=== PATIENT | female | born 1945 | race Caucasian/White ===

== ENCOUNTER 2020-09-16 08:46 | Day surgery (SDC) | payer MEDICARE, OTHER ==
[~2020-09-16] VITALS: Ht 167.6 cm; Wt 68.2 kg
[~2020-09-16 08:46] MED LIST: ATORVASTATIN CA40 MG PO; BAYER CHEWABLE81 MG PO; BENICAR20 MG PO; CHLORHEXIDINE473 ML MM; CHOLESTYRAMINE P4 GM PO; CLARITIN10 M2 PO; DETROL LA4 MG PO; DEXAMETHAS0.5 MG/5 M PO; DULOXETINE HCL60 MG PO; HYDROCODON-ACE1 EA10 PO; LASIX20 MG PO; PEPCID20 MG PO; RISPERIDONE1 MG PO; TOPROL XL25 MG PO; VESICARE10 MG PO; VISTARIL50 MG PO
--- NOTE | 2020-09-16 12:31 | NUR ---
09/16/20 1231 Shari Navarro 1223: PT ARRIVES TO PACU VIA STRETCHER FOR RECOVERY. NON REACTIVE TO TACTILE AND VERBAL STIMULATION ON ARRIVAL. VSS, RESP EVEN AND UNLABORED. O2 SAT STABLE >985 ON 6L VIA FACEMASK. DRESSING C/D/I X4. SCDS TURNED ON. 1228: PT REACTIVE TO TACTILE STIMULATION. REMAINS ON 6L OXYGEN VIA FACEMASK 1230: ANTHONY HUGGER IN PLACE. PT AWAKE OFF AND ON. VSS, RESP EVEN AND UNLABORED. SAT STABLE ON 6L O2 >98%
--- NOTE | 2020-09-16 13:15 | NUR ---
PT ARRIVED TO FLOOR VIA STRETCHER FROM PACU. PT ABLE TO SCOOT OVER FROM STRETCHER TO BED. PT ALERT AND ORIENTED, PT REPORTS NO PAIN OR NAUSEA AT THIS TIME. PT HAS 2 INCISIONS AND 3 SITES FOR JPS NOTED. LEFT INCISION HAS SLIGHT DOTTED SHADOWING NOTED UPON ARRIVAL
--- NOTE | 2020-09-16 13:49 | NUR ---
PATIENTS IV IS INFUSING PER ORDER. PATIENTS MEDICAITONS GIVEN POER ORDER. PATIENT DENIES ANY PAIN OR NAUSEA. PATIENT IS RESTING IN BED SIPING ICE WATER. PATIENT GIVEN JELLO PER REQUEST. PATIENT REMAINS ON RA. NO NEEDS NOTED AT THIS TIME. CALL LIGHT AND BELONGINGS WITHIN REACH.
--- NOTE | 2020-09-16 14:15 | NUR ---
THIS RN IN TO CHECK ON PT. PT STATES THAT SHE NEEDS NOTHING AT THIS TIME AND HAS NO PAIN, PT REPORTS SLIGHT BURING AT SITE BUT HAS NO REAL CONCERN ABOUT THIS.
--- NOTE | 2020-09-16 15:15 | NUR ---
THIS RN IN PTS ROOM TO CHECK ON PT. PT STATES THAT SHE IS DOING WELL AND THAT THE BURING AT THE SURGICAL SITE IS GONE AND STATES TAHT SHE IS SURPRISED ON HOW WELL SHE IS DOING.
--- NOTE | 2020-09-16 16:15 | NUR ---
THIS RN ASSISTED PT TO THE RESTROOM AT THIS TIME. PT STEADY ON FEET AND ABLE TO VOID QUANITY SUFFIENT AT THIS TIME. PT HAS NO CONERNS AT THIS TIME AND STATES THAT SHE HAS NO PAIN BUT DOES HAVE A SCRATCHING THROAT, THIS RN PROVIDED PT WITH A 7UP.
--- NOTE | 2020-09-16 18:20 | NUR ---
THIS RN IN PTS ROOM TO EDUCATE PT ABOUT HOW TO DRAIN A SAÚL. PT SHOWED HOW TO DO IT WITH THE FIRST TWO DRAINS AND THEN ABLE TO DO IT WITH THE THIRD DRAIN. PT ASKED PERTINANT QUESTIONS AND WAS ABLE TO PREFORM TASK WELL
--- NOTE | 2020-09-16 19:10 | NUR ---
IN ROOM FOR REPORT, PT IS RESTING WITH EYES CLOSED, RR IS EVEN AND NONLABORED. CALL LIGHT IS CLOSE. IV IS INFUSING FINE.
--- NOTE | 2020-09-16 20:18 | NUR ---
IN TO GET VITALS, I@Os ARE DONE, PT UP TO VOID SBA TO INDP AT THIS TIME, NO FURTHER NEEDS
--- NOTE | 2020-09-16 22:29 | NUR ---
IN ROOM TO ASSESS PT AND ADMINISTER EVENING MEDICATIONS. TAUGHT DRAIN CARE AND PT EMPTIED ALL 3 DRAINS. SHE DENIES ANY PAIN AT THIS TIME. THERE IS SOME DRAINAGE NOTED ON DRAIN #2 GAUZE. PINNED BOTH DRAINS TO GOWN TO AVOID PULLING ON THEM. PT DENIES FURTHER NEEDS AT THIS TIME. CALL LIGHT IS CLOSE.
--- NOTE | 2020-09-17 00:36 | NUR ---
PT IS RESTING WITH EYES CLOSED, RR IS EVEN AND NONLABORED. CALL LIGHT IS CLOSE AND IV IS INFUSING FINE.
--- NOTE | 2020-09-17 02:06 | NUR ---
PT IS RESTING WITH EYES CLOSED, RR IS EVEN AND NONLABORED. CALL LIGHT IS CLOASE AND IV IS INFUSING FINE.
--- NOTE | 2020-09-17 02:34 | NUR ---
IN ROOM TO ASSESS PT AND HANG NEW BAG OF IV FLUID. PT DENIES PAIN AT THIS TIME. ALL DRESSINGS AND SOHAIL DRAINS REMAIN INTACT. BOTH ACTICOATS HAVE 1 SMALL SPOT OF DRAINAGE ON DRESSING. DRAIN 1 AND 3 HAVE A SCANT AMOUNT OF DRAINAGE JUST AROUND TUBING AND DRAIN 2 HAS A MODERATE AMOUNT OF DRAINAGE ON GAUZE UNDER DRAIN TUBE. PT DENIES ANY NEEDS AT THIS TIME. CALL LIGHT IS CLOSE.
--- NOTE | 2020-09-17 03:58 | NUR ---
PT IS RESTING WITHE EYES CLOSED, RR IS EVEN AND NONLABORED. CALL LIGHT IS CLOSE AND IV IS INFUSING FINE.
--- NOTE | 2020-09-17 06:21 | NUR ---
IN ROOM TO ASSIST PT TO RESTROOM AND GET VS/ I&O'S. PT EMPTIED HER OWN DRAINS WITH MINIMAL ASSISTANCE. SHE HAS NO PAIN AND DENIES FURTHER NEEDS. CALL LIGHT IS CLOSE. IV IS INFUSING FINE.
--- NOTE | 2020-09-17 06:31 | NUR ---
PT STATES THAT SHE SLEPT WELL THROUGH THE NIGHT. SHE AMBULATES SBA AND IV IS INFUSING AT 85MLS/HR. SHE IS TOLERATING A REGULAR DIET. TAUGHT DRAIN CARE AND PT HAS BEEN EMPTYING HER DRAINS WITH LITTLE ASSISTANCE. SHE IS VOIDING QS URINE AND DENIES PAIN AND NAUSEA.
--- NOTE | 2020-09-17 07:27 | NUR ---
this rn received report from homer nj. pt awake this am and states that she is doing well this am with no pain noted from surgery and states that she is feeling more comfortable with emptying her drains
--- NOTE | 2020-09-17 08:06 | NUR ---
PATIENT AWAKE. HELPED PATIENT INTO CHAIR. AM CARE DONE AND BED MADE. CALL LIGHT IN REACH BREAKFAST ORDERED. NOTHING ELSE NEEDED AT THIS TIME
[2020-09-17] MEDS ORDERED: ACETAMINOPHEN500 MG PO (08:44)
[2020-09-17] MEDS ORDERED: IBUPROFEN600 MG PO (08:44)
[2020-09-17] MEDS ORDERED: OXYCODON-ACETA1 EAC2 PO (08:44)
--- NOTE | 2020-09-17 09:13 | NUR ---
THIS RN IN PTS ROOM TO GIVE PT HER MORING MEDS. PT SITTING UP IN CHAIR AND BELEM FROM BREAST TEAM IN PTS ROOM SHOWING HER HOW TO WEAR THE CAMMISOL. PT STATES THAT SHE STILL NOT HAVING ANY PAIN AND REPORTS NO CONCERNS FOR GOING HOME.
--- NOTE | 2020-09-17 09:40 | NUR ---
THIS RN INTO ROOM, PATIENT SITTING UP IN CHAIR. PATIENT STATES SHE IS BEING DISCHARGED HOME THIS MORNING. CASE MANAGEMENT ASSESSMENT COMPLETED. PATIENT LIVE AT HOME WITH HER NATALIA WHO IS ABLE TO HELP WITH HER CARE. LELA IBRAHIM RN PATIENT AND HER HAVE SUCCESSFULLY EMPTYING THE SAÚL DRAINS. PATIENT STATES SHE DOES OWN A WALKER, BUT DOES NOT USE IT. SHE STATES SHE HAS NO MOBILITY NEEDS AT THIS TIME. PATIENT DENIES FINANCIAL NEEDS. PATIENT ADVISED THAT IF THERE ARE ANY QUESTIONS OR CONCERNS REGARDING DISCHARGE TO CONTACT CASE MANAGEMENT STAFF.
--- NOTE | 2020-09-17 10:55 | NUR ---
PATIENTS LAST SET OF VITALS TAKEN AND RECORDED. PATIENT DENIES ANY PAIN. NO NEEDS NOTED. [employer] IS TO WHEELCHAIR PATIENT OUT TO IN THEIR PRIVATE POV. ALL BELONGINGS WITH PATIENT AND DISCHARGE INSTRUCTIONS.
--- NOTE | 2020-09-20 10:51 | OR ---
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 POSTOPERATIVE DIAGNOSES: 1. Right infiltrating ductal carcinoma of the breast. 2. [place] lymph node right side negative for metastatic disease on frozen pathology. 3. Moderately large pigmented lesion left posterior axillary area of uncertain behavior. PROCEDURES: 1. Left total (prophylactic) mastectomy. 2. Right methylene blue sentinel lymph node injection. 3. Right deep axillary sentinel lymph node biopsy. 4. Right total mastectomy. 5. Excision of left posterior axillary scalloped edge large pigmented skin lesion (4.0 cm excision size). ANESTHESIA: General LMA, Ruben Davison CRNA and . DRAINS: 1. Left chest wall 7 mm flat Josué drain. 2. Right chest wall and right axillary 7 mm Josué drain. INDICATION: This 74-year-old white woman is a patient of Dr. Steve Sepulveda, was identified to have an abnormality of the right breast in the periareolar area. Biopsy by image guidance by Dr. Garcia confirmed infiltrating ductal breast carcinoma. The patient has family history of breast cancer in mother and grandmother. Preoperative BRCA testing was obtained by Dr. Modi, radiation therapist which was negative. Initially, the patient was anticipating right lumpectomy, sentinel lymph node biopsy and radiation therapy, but the patient became more convinced that she preferred a total mastectomy on the right as well as prophylactic mastectomy on the left. A lengthy consultation was undertaken with radiation therapist, Dr. Modi and despite both of our recommendation of a breast conservation approach, she strongly wishes to Electronically Signed By: YONNY BECERRA MD 09/20/20 1051 PATIENT NAME: STACIE MUNOZ OPERATIVE REPORT DATE OF : 47 REPORT #: [id number] PHYSICIAN: YONNY BECERRA MD PCP: STEVE SEPULVEDA MD REPORT IS CONFIDENTIAL AND NOT TO BE RELEASED WITHOUT AUTHORIZATION [facility] [address], [place] [address] Signed have right total mastectomy with sentinel lymph node biopsy as well as left prophylactic mastectomy. She does understand that the survival rate is equivalent to both approaches and yet still feels compelled to have bilateral mastectomy. She understands, as does her , the physician and psychiatrist, the risks of bleeding, infection, cosmetic deformity, and so forth. The patient has no intention of breast reconstruction at least at this point. FINDINGS: The left breast had normal parenchyma. Axilla was clinically negative. Left total mastectomy was undertaken without problem. On the right side, there is no palpable abnormality to correspond to the previous biopsy site. Good uptake of methylene blue dye was noted in the dominant right axillary sentinel lymph node. Pathology report during operation showed on frozen examination that the right sentinel lymph node was negative for metastatic disease. A total mastectomy on the right was accomplished without problem. There is no evidence of tumor penetration through the pectoralis fascia and the tumor itself was not identified at this point. DESCRIPTION OF PROCEDURE: The patient was brought to the operating room, given a general anesthetic by LMA technique. Preoperative antibiotic Ancef was given. Sequential compression device stockings were used and heparin subcutaneously administered. Injection in the 10 o'clock position of the right periareolar area with 2.5 mL of methylene blue dye was undertaken mostly in the subepithelial position. Both breasts and axilla were prepared with a Betadine based solution and draped sterilely. As the benign breast was on the left side, it was deemed appropriate to excise 1st. incision was made in the nipple-areolar complex and the dermis divided with electrocautery. Superior and inferior flaps were developed with electrocautery dissection. The breast was excised in a medial to lateral configuration excising the breast tissue with the pectoralis fascia. Small bleeding sites through the pectoralis muscle were secured with electrocautery. A dominant one secured with a silk tie. The axillary tail of Gabriele was excised and revealed the underlying axilla. The axilla had no clinically suspicious lymph nodes and elaborate dissection of the axilla was not undertaken. Irrigation was undertaken with sterile water for its tumor lytic effect. Hemostasis was assured with electrocautery. A stab incision was made inferiorly and a 7 mm flat Josué drain configured to drain the subflap area. Tisseel with carbon dioxide delivery device was used to coat the pectoralis and the flap areas. Flap skin was reapproximated with interrupted 2-0 Vicryl and a running subcuticular 3-0 Vicryl for the skin. Steri-Strips were applied as was an Acticoat dressing. Electronically Signed By: YONNY BECERRA MD 09/20/20 1051 PATIENT NAME: STACIE MUNOZ OPERATIVE REPORT DATE OF : 47 REPORT #: [id number] PHYSICIAN: YONNY BECERRA MD PCP: STEVE SEPULVEDA MD REPORT IS CONFIDENTIAL AND NOT TO BE RELEASED WITHOUT AUTHORIZATION [address] [address] Signed Not mentioned nor noted previously by me was a scalloped relatively larger deeply pigmented skin lesion in the posterior axillary fold. This was deemed appropriate for excision on the possibility of malignant neoplasm. Elliptical incision was made incorporating the lesion entirely with clinically negative margin in the past as skin lesion, left posterior axillary fold. Electrocautery was used for hemostasis. The wound was closed in layers with interrupted 3-0 Vicryl and running subcuticular 3-0 Vicryl for the skin. Steri-Strips were applied as was an Op-Site. Plans were then made for right-sided surgery. An elliptical incision was made incorporating the nipple areolar complex and superior and inferior skin flaps developed again with electrocautery. In the area of the axilla, further dissection was undertaken and methylene blue lymphatic channel was easily identified and followed into the depths of the axilla. This allowed identification of a 1.5 cm lymph node with avid uptake of blue dye. There were no other lymph nodes noted with uptake of dye at that point. The node was carefully from the axillary fat and excised and passed for frozen pathology. The breast was then dissected free in a medial to lateral configuration using electrocautery to secure penetrating vessels. Once excised, the axillary tail of Gabriele was marked with a suture finding the axillary tail. There was no evidence of penetration of tumor through the pectoralis fascia or anything of that sort. The lesion itself was nonpalpable. Irrigation with sterile water was undertaken in the axilla and the subflap areas. Hemostasis assured with electrocautery. By this point, frozen pathology returned on the axillary lymph node, which was negative for metastatic disease. Two separate 7 mm flat Josué drains were placed on the right side, one to include the axilla and the other beneath the flaps. They were secured to the skin with 2-0 nylon suture. The flaps were reapproximated with interrupted 2-0 Vicryl and a running subcuticular 3-0 Vicryl was used for the skin. Steri-Strips were applied as was an Acticoat dressing. The patient was ultimately extubated and transferred to the recovery room in good condition having suffered no complication. Sponge, needle, and instrument counts were reported as correct x3. Blood loss was about 100 mL. MD DONNA Phillips/LAMONTL /[id number] cc: Steve Sepulveda MD Electronically Signed By: YONNY BECERRA MD 09/20/20 105 PATIENT NAME: STACIE MUNOZ OPERATIVE REPORT DATE OF : 47 REPORT #: [id number] PHYSICIAN: YONNY BECERRA MD PCP: STEVE SEPULVEDA MD REPORT IS CONFIDENTIAL AND NOT TO BE RELEASED WITHOUT AUTHORIZATION [address] [address] Signed Fabien Modi MD, PH.D. Josh Stuart MD Copies: STEVE SEPULVEDA MD, JUNO ~ Electronically Signed By: YONNY BECERRA MD 09/20/20 1051 PATIENT NAME: ELOINA MUNOZЕЛЕНА RIDDLE OPERATIVE REPORT DATE OF : 47 REPORT #: [id number] PHYSICIAN: YONNY BECERRA MD PCP: STEVE SEPULVEDA MD REPORT IS CONFIDENTIAL AND NOT TO BE RELEASED WITHOUT AUTHORIZATION
--- NOTE | 2020-09-23 12:53 | PATH ---
[facility] [address], [place] [address] Signed SPECIMEN(S): A LEFT BREAST SPECIMEN(S): B LEFT POSTERIOR AXILLA SPECIMEN(S): C RIGHT AXILLARY SENTINEL LYMPH NODE SPECIMEN(S): D RIGHT BREAST AND TUMOR SPECIMEN SOURCE: A. LEFT BREAST B. LEFT POSTERIOR AXILLA C. RIGHT AXILLARY SENTINEL LYMPH NODE D. RIGHT BREAST AND TUMOR CLINICAL HISTORY: Bilateral total mastectomy, SLN biopsy with possible axillary dissection. Family history of breast CA. 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 B) Left posterior axillary skin lesion. C) Right axillary sentinel lymph node. D) Right breast with tumor (suture lofton axillary tail). Specimen Time to Fixation- 09/16/2020 11:05:00 AM FROZEN SECTION DIAGNOSIS: C. Right axillary sentinel lymph node #1: - No evidence of malignancy in underwriting account representative section frozen. Tiffanie Eagle M.D. 09/16/2020 11:49 a.m. Frozen section diagnoses called to Dr. Monzon. NAL:cml The Gross Description was prepared using a voice recognition system. The report was reviewed for accuracy; however, sound-alike word errors, addition and/or deletions may occur. If there is any question about this report, please contact Client Services. FINAL PATHOLOGIC DIAGNOSIS: A. Breast, left, simple mastectomy: - Benign breast tissue wit fibrocystic changes including usual ductal hyperplasia, cyst formation, and stromal fibrosis. - Microcalcifications associated with benign breast tissue. - Negative for malignancy. B. Skin lesion, left posterior axilla, excision: - Seborrheic keratosis, pigmented. C. Brielle lymph node, right axilla, excisional biopsy: - One lymph node with no evidence of malignancy (0/1). D. Breast, right simple mastectomy : PATIENT NAME: STACIE MUNOZ PATHOLOGY DATE OF : 47 REPORT #: [id number] PHYSICIAN: FIFI PATHOLOGY PCP: KERMIT DERAS MD REPORT IS CONFIDENTIAL AND NOT TO BE RELEASED WITHOUT AUTHORIZATION [facility] [address] [place], [place] [address] Signed - Invasive ductal carcinoma with the following features: - Tumor site: 2 o'clock. - Tumor size: 10 mm in greatest dimension. - Histologic type: Invasive carcinoma of no special type (ductal). - Histologic grade (Neeraj histologic score): - Glandular (acinar)/tubular differentiation: Score 3. - Nuclear pleomorphism: Score 2. - Mitotic rate: Score 1. - Overall grade: Grade 2 (total score 6 of 9). - Tumor focality: Single focus of invasive carcinoma. - Ductal carcinoma in situ (DCIS): Present, negative for extensive intraductal component (EIC). - Architectural patterns: Solid, cribriform, and comedo. - Nuclear grade: Grade 2 (intermediate). - Necrosis: Present, central (expansive "comedo" necrosis). - Lobular carcinoma in situ (LCIS): Not identified. - Margins: - Invasive carcinoma margins: Uninvolved by invasive carcinoma. - Greater than 10 mm from superior, inferior, medial, lateral, and posterior margins. - DCIS margins: Uninvolved by DCIS. - Greater than 10 mm from superior, inferior, medial, lateral, and posterior margins. - Regional lymph nodes: Uninvolved by tumor cells. - Number of lymph nodes examined: 2 (including specimen C). - Number of sentinel nodes examined: 1. - Treatment effect in the breast: No known pre-surgical therapy. - Lymphovascular invasion: Not identified. - Dermal lymphovascular invasion: Not identified. - Breast biomarker studies: Please refer to previously performed testing ([id number]), interpreted as ER positive, W[place] positive, HER2 negative by IHC, and Ki-67 proliferation index 4.6%. - Microcalcifications: Present in non-neoplastic tissue. - Additional findings: Biopsy site change. - Pathologic stage classification (pTNM, AJCC 8th edition): pT1b (sn) pN0. PATIENT NAME: STACIE MUNOZ PATHOLOGY DATE OF : 47 REPORT #: [id number] PHYSICIAN: FIFI PATHOLOGY PCP: KERMIT DERAS MD REPORT IS CONFIDENTIAL AND NOT TO BE RELEASED WITHOUT AUTHORIZATION [facility] [address] [place] [id number] Signed COMMENT: As part of [employer] [employer]' Quality Improvement Program, this case was reviewed by another member of our pathology staff. One additional benign lymph node was found in the right breast axillary tail, making the total lymph node count two. NAL:BRP:cml:C1NR MICROSCOPIC EXAMINATION: Histologic sections of all submitted blocks are examined by light microscopy. These findings, together with the gross examination, support the pathologic diagnosis. Pancytokeratin (AE1/AE3) immunohistochemical stains were performed on each section of the right axillary sentinel lymph node and confirm the absence of metastatic tumor cells. SMMHC and p63 immunohistochemical stains (with appropriately staining controls were performed on a underwriting account representative section of the carcinoma and confirms the absence of myoepithelial cell surrounding the invasive carcinoma. GROSS DESCRIPTION: Four specimens are received in four containers, labeled "JJ." A. The specimen, labeled "JJ, A.," and designated on the requisition "left breast," is received in formalin and consists of a 480 gram, 16.2 x 13.0 x 4.7 cm simple mastectomy specimen that is without orientation. On the anterior surface of the specimen is a ye, grossly unremarkable, 15.2 x 5.1 cm skin ellipse. Centrally located on the skin ellipse is a 5.5 x 4.1 cm, ye, grossly unremarkable areola and a flat, 1.5 x 1.3 x 0.2 cm, grossly unremarkable nipple. One aspect of the specimen has slightly more adipose tissue. This aspect is arbitrarily inked blue while the opposing aspect is inked green. The posterior surface of the specimen is inked black. The specimen is cross-sectioned into 14 slices to reveal yellow, fibrofatty and ye-white fibroglandular tissue. A discrete mass lesion is not grossly identified. Fibroglandular tissue comprises less than 5% of the parenchyma. The outer portions of the specimen are palpated for lymph nodes and no lymph nodes are grossly identified. [place] sections are submitted as follows: (A1-A2) First half of breast, blue inked aspect (slice 4 and 6 respectively) (A3-A4) First half of breast, green inked aspect (slice 3 and 7 respectively) (A5) Nipple and areolar complex (slice 6) PATIENT NAME: STACIE MUNOZ PATHOLOGY DATE OF : 47 REPORT #: [id number] PHYSICIAN: FIFI CARVALHO PCP: KERMIT DERAS MD REPORT IS CONFIDENTIAL AND NOT TO BE RELEASED WITHOUT AUTHORIZATION [facility] [address] [place], [place] [address] Signed (A6-A7) Second half of breast, blue inked aspect (slice 9 and 12 respectively) (A8-A9) Second half of breast, green inked aspect (slice 9 and 13 respectively) Cold ischemic time: 5 minutes per requisition from. Formalin fixation time: Approximately 25.5 hours. B. The specimen, labeled "JJ, B.," and designated on the requisition "left posterior axillary skin lesion," is received in formalin and consists of an unoriented, irregularly-shaped, ye, wrinkled, ellipsoid, 2.4 x 1.3 cm skin segment excised to a depth of 0.7 cm. On the skin surface is an ill-defined, somewhat porous, brown, 1.0 x 1.0 x 0.2 cm lesion that is 0.1 cm from the nearest peripheral skin margin. The resection margin is inked blue and specimen is cross-sectioned. The lesion does not grossly appear to invade into the subcutaneous tissue which is yellow, homogenous and grossly unremarkable. The specimen is submitted entirely as follows: (B1) Tips (B2-B3) Remaining specimen C. The specimen, labeled "JJ, C.," and designated on the requisition "right axillary sentinel lymph node," is received fresh for frozen section diagnosis and consists of a 0.7 x 0.5 x 0.4 cm lymph node candidate. The lymph node candidate is bisected and one half of the lymph node candidate is submitted for frozen section in AFR1. The specimen is submitted entirely as follows: (C1) Remainder of frozen section (C2) Remainder specimen D. The specimen, labeled "KYLAH D.," and designated on the requisition "right breast with tumor, suture lofton axillary tail," is received in formalin and consists of a 614 gram, 20.5 x 16.2 x 5.2 cm mastectomy specimen with diffusely attached tail. The specimen is oriented with a suture on the axillary tail. On the anterior surface of the specimen is a ye, grossly unremarkable, 19.2 x 8.1 cm skin ellipse with a centrally located, ye, wrinkled, 6.0 x 5.4 cm areola and a flattened, ye, 1.5 x 1.3 x 0.2 cm nipple. The skin has a 5.0 x 3.2 cm area of previous blue inking that abut the area and is 0.5 cm from the nearest resection margin. The specimen is inked as follows: Posterior = black; superior = blue; inferior = green; medial = orange; lateral = red; anterior = yellow; posterior = black. The specimen is sectioned from lateral to medial into 18 slices to reveal an ill-defined, heterogeneous, dark red, hemorrhagic to ye-white, PATIENT NAME: STACIE MUNOZ PATHOLOGY DATE OF : 47 REPORT #: [id number] PHYSICIAN: FIFI PATHOLOGY PCP: KERMIT DERAS MD REPORT IS CONFIDENTIAL AND NOT TO BE RELEASED WITHOUT AUTHORIZATION [address] [address] Signed indurated, 3.2 x 2.0 x 1.9 cm lesion (slices 14-16) that has a silver metallic, lorena-shaped biopsy marker (slice 16). The lesion is 1.1 cm from the skin, 1.4 cm from the nipple, 1.5 cm from the anterior margin, 1.9 cm from the area of previous blue inking on the skin surface, 3.5 cm from the medial margin, 3.8 cm from the nearest inferior margin, 5.2 cm from the deep margin, 5.2 cm from the superior margin, and 15.9 cm from the lateral margin. The remaining parenchyma is comprised of yellow fibrofatty and ye-white fibroglandular tissue without an additional discrete mass/lesion. Fibroglandular tissue comprises approximately 5% of the remaining parenchyma. The lateral portion of the specimen is sectioned and palpated for lymph nodes. One pink-ye, 0.8 cm in greatest dimension lymph node candidate is found within slice 1. [place] sections are submitted as follows: (D1) Lesion to skin and site of biopsy marker (slice 16) (D2) Lesion to skin (slice 15) (D3-D4) Lesion to nipple (slice 14 and 15 respectively (D5) Lesion to area of blue skin inking (slice 15; D2, D3 and D4 form a full cross-section of the lesion) (D6) Nearest medial margin to lesion (slice 16) (D7) Nearest inferior margin to lesion (slice 16) (D8) Nearest deep margin to lesion (slice 14) (D9) Central section fibroglandular tissue (slice 11) (D10) Nearest superior margin to lesion (slice 14) (D11) Upper outer quadrant (slice 8) (D12) Lower outer quadrant (slice) (D13) Section of the lateral margin (slice one) (D14) Lymph node candidate in toto Cold ischemic time: 2 minutes per requisition from. Formalin fixation time: Approximately 48.5 hours. AI (under the direct supervision of a pathologist) ADDITIONAL NOTES: Immunohistochemical and/or in situ hybridization studies were performed on this case with the appropriate positive controls that react as expected. This test was developed and its performance characteristics determined by [facility]. It has not been cleared or approved by the U.S. Food and Drug Administration. The FDA has determined that such clearance or approval is not PATIENT NAME: STACIE MUNOZ PATHOLOGY DATE OF : 47 REPORT #: [id number] PHYSICIAN: FIFI PATHOLOGY PCP: KERMIT DERAS MD REPORT IS CONFIDENTIAL AND NOT TO BE RELEASED WITHOUT AUTHORIZATION [facility] [address] [place] [phone] Signed necessary. This test is used for clinical purposes. It should not be regarded as investigational or for research. [facility] is certified under the Clinical Laboratory Improvement Amendments of 1988 (CLIA) as qualified to perform high complexity clinical laboratory testing. This assay has not been validated for specimens that have been decalcified. PERFORMING LABORATORY: [facility], [address] [place] [id number] (CLIA# [id number]). The technical component was performed by [facility] [address] (Process Engineering Technician: Nusrat León MD; CLIA# [id number]). [facility], [address] [place] [address] (CLIA# [id number]). Diagnostician: Tiffanie Eagle MD Pathologist Electronically Signed 09/23/2020 Copies: ~ PATIENT NAME: STACIE MUNOZ PATHOLOGY DATE OF : 47 REPORT #: [id number] PHYSICIAN: FIFI CARVALHO PCP: KERMIT DERAS MD REPORT IS CONFIDENTIAL AND NOT TO BE RELEASED WITHOUT AUTHORIZATION
== END 2020-09-17 10:55 | disposition home or self-care (01) ==
LOC: DS 08:46 → MS 08:46 → DS 09:45 → MS 13:20 → DS 09-17 10:55
PROVIDERS: ATTEND Surgery
PROC: 0HTV0ZZ Resection of Bilateral Breast, Open Approach (ICD-10-PCS; principal; 2020-09-16 09:45)
PROC: 07B50ZX Excision of Right Axillary Lymphatic, Open Approach, Diagnostic (ICD-10-PCS; 2020-09-16 09:45)
PROC: 0HB5XZZ Excision of Chest Skin, External Approach (ICD-10-PCS; 2020-09-16 09:45)
DX: C50.111 Malignant neoplasm of central portion of right female breast (principal); Z40.01 Encounter for prophylactic removal of breast; N60.02 Solitary cyst of left breast; N60.12 Diffuse cystic mastopathy of left breast; R92.0 Mammographic microcalcification found on diagnostic imaging of breast; L82.1 Other seborrheic keratosis; I10 Essential (primary) hypertension; K52.9 Noninfective gastroenteritis and colitis, unspecified; Z88.6 Allergy status to analgesic agent; Z88.8 Allergy status to other drugs, medicaments and biological substances; Z80.3 Family history of malignant neoplasm of breast
CPT/HCPCS: 00404; 36415; 85025; 88305; 88307; 88341; 88342; J0131; J0690; J1100; J1644; J1885; J2001; J2405; J2704; J3010; J7121; Q9968

== ENCOUNTER 2023-05-05 14:58 | Inpatient (IN) | payer OTHER, MEDICARE ==
[~2023-05-05] VITALS: Ht 167.6 cm; Wt 53.5 kg
[~2023-05-05 14:58] MED LIST changes: +ACETAMINOPHEN500 MG PO; -CLARITIN10 M2 PO; +CLARITIN10 MG PO; +IBUPROFEN600 MG PO; +OXYCODON-ACETA1 EAC2 PO
[2023-05-05 15:14] LABS: BASOPHILS 0.5 % (0-2); EOSINOPHILS 3.4 % (0-6); HEMATOCRIT 43.3 % (35.0-50.0); HEMOGLOBIN 14.4 g/dL (12.0-18.0); MCH 30.1 (27-36); MCHC 33.2 g/dl (30-36); MCV 90.8 fl (81-99); MONOCYTES 8.7 % (0-12); NEUTROPHILS 52.4 % (39-80); PLATELET COUNT 223 K/uL (140-440); RBC 4.77 M/ul (4.3-5.7); RDW 13.6 (10.5-15.0)
[2023-05-05 15:31] LABS: ALBUMIN 3.6 g/dL (3.4-5.0); ALBUMIN/GLOBULIN RATIO 0.92 (1.1-2.4); ALCOHOL, MEDICAL <3 ng/dL (<3); ALKALINE PHOSPHATASE 89 U/L (46-116); ALT (SGPT) 31 U/L (14-59); ANION GAP 11.7 (7-21); AST (SGOT) 18 U/L (15-37); BILIRUBIN, TOTAL 0.3 ng/dL (0.2-1.0); BUN/CREATININE RATIO 20.17 (6.0-28.6); CALCIUM 9.3 mg/dL (8.5-10.1); CARBON DIOXIDE 29 mmol/L (21-32); CHLORIDE 105 mmol/L (98-107); CREATININE, SERUM 1.14 mg/dL (0.55-1.02); GLOMERULAR FILTRATION RATE,EST 50 mL/min (>60); POTASSIUM 3.7 mmol/L (3.5-5.1); PROTEIN, TOTAL 7.5 g/dL (6.4-8.2); UREA NITROGEN 23 mg/dL (7-18)
[2023-05-05] MEDS ORDERED: HYDROXYZINE PAM50 MG PO (15:36)
[2023-05-05] MEDS ORDERED: METOPROLOL SUCC25 MG PO (15:37)
[2023-05-05] MEDS ORDERED: IRBESARTAN150 MG PO (15:37)
[2023-05-05] MEDS ORDERED: DONEPEZIL HCL10 MG PO (15:37)
[2023-05-05] MEDS ORDERED: SOLIFENACIN SUC10 MG PO (15:38)
[2023-05-05 15:46] LABS: ABO A; ANTIBODY SCREEN NEGATIVE; RH POSITIVE
--- NOTE | 2023-05-05 16:35 | NUR ---
this rn in to er 1 to deliver chart and medical records from pcp to or rns, this rn introduced self to pt and family - verified dr souza as pcp and axel as pharmacy and let them know we had obtained records and were ready for pt in room 129 after surgery. pt greatful and thankful and held rn hand. chart left with surgery staff.
--- NOTE | 2023-05-05 18:53 | NUR ---
PT IN RECOVERY IN ROOM 129 WITH AXEL LEO, THIS RN REVIEWING ORDERS - CALL TO DR VEGA FOR CONSULT - NEW ORDERS FOR LABS ENTERED BY THIS RN, CALL TO OR FOR ANEST. ALVA FOR MEDS IV FOR NAUSEA - PT IS FEELING SICK IN RECOVERY WITH AXEL LEO.
--- NOTE | 2023-05-05 19:45 | NUR ---
05/05/231944 Diann Shafer 1827- PT TAKEN TO ICU ROOM 129 FOR RECOVERY, WHILE LEAVING OR, NOTED DRESSING AROUND MOST PROXIMAL PINS WAS BLEEDING THROUGH. PER LANCE RN, REINFORCE WITH ABD AND CONTACT DR GRADY IF BLEEDING THROUGH DURING RECOVERY. PT WAKES ON ARRIVAL TO ICU, PT NOT VERBAL AND IS MOVING ARMS AND LEGS AROUND. LARGE BLANKET PLACED BETWEEN LEGS TO PROTECT THE RIGHT LEG FROM THE EXTERNAL FIXATOR. ABD PLACED TO REINFORCE DRESSING. PULSES PRESENT TO LEFT FOOT. O2 AT 6L ON ARRIVAL BUT PROMPTLY REMOVED DUE TO PT MOVING.
[2023-05-05 19:55] LABS: BASOPHILS 0.2 % (0-2); EOSINOPHILS 0.1 % (0-6); HEMATOCRIT 38.9 % (35.0-50.0); HEMOGLOBIN 12.4 g/dL (12.0-18.0); LYMPHOCYTES 8.7 % (24-44); MCH 29.5 (27-36); MCHC 31.9 g/dl (30-36); MCV 92.3 fl (81-99); MONOCYTES 5.7 % (0-12); NEUTROPHILS 85.3 % (39-80); PLATELET COUNT 186 K/uL (140-440); RBC 4.21 M/ul (4.3-5.7); RDW 13.5 (10.5-15.0)
[2023-05-05 20:05] LABS: ANION GAP 16.9 (7-21); BUN/CREATININE RATIO 17.94 (6.0-28.6); CALCIUM 8.3 mg/dL (8.5-10.1); CREATININE, SERUM 1.17 mg/dL (0.55-1.02); POTASSIUM 3.9 mmol/L (3.5-5.1)
--- NOTE | 2023-05-05 21:11 | NUR ---
PATIENT ALEXANDER IS A PLEASANT WOMAN WHO REPORTS THAT SHE IS "COMFORTABLE" WITH NO NEEDS. VSS AND WDL PER MONITOR. SHE REFUSED SENNA AND MILK OF MAGNESIA THIS EVENING BECAUSE SHE STATES SHE HAS CHRONIC DIARRHEA AND WOULD RATHER NOT TAKE THOSE MEDICATIONS. OPERATION SITE IS NOTED TO HAVE SOME BLOOD AROUND THE PINS OTHERWISE WITHIN NORMAL LIMITS OF A FRESH SITE. SAFETY CHECK PERFORMED.
[2023-05-05 21:17] VITALS: BP 155/66
[2023-05-05 23:49] VITALS: BP 167/57
--- NOTE | 2023-05-05 23:53 | NUR ---
PATIENT "JANESSA" REPORTED PAIN 5/10 IN HER LEFT LEG. PRN OXYCODONE WAS GIVEN. REASSESSMENT 11/08. ADDITIONAL 5MG OXY GIVEN. WILL REASSESS AT APPROPRIATE TIME. REPOSITIONED WITH AHMET HERNANDEZ. ALERT AND ORIENTED X 4. SAFETY CHECK PERFORMED AND WDL PER ORDER
--- NOTE | 2023-05-06 01:20 | NUR ---
SPO2 DROPPING TO 85%, IN TO CHECK ON PT, SHE IS LYING WITH EYES CLOSED BUT OPENS THEM WITH STIMULATION- ASKED HOW HER PAIN IS DOING SHE STATES THAT SHE IS COMFORTABLE AND HAS NO REQUESTS- OXYGEN APPLIED OXYMASK AND SPO2 UP TO 96%.
--- NOTE | 2023-05-06 03:16 | NUR ---
PATIENT JANESSA REPORTS COMFORT AND SAYING "OH YEAH, ALL GOOD" AFTER ADMINISTRATION OF 0.5MG DILAUIDID. ICE PACK IN PLACE ON LEFT LEG. OP SITE HAS MODERATE BLOOD ON FACUNDO WRAP. WILL CONTINUE TO MONITOR.
[2023-05-06 05:00] VITALS: BP 92/56
--- NOTE | 2023-05-06 05:20 | NUR ---
PATIENT JANESSA APPEARS COMFORTABLE AND IS RESTING WITH EYES CLOSED. VSS AND WDL PER MONITOR. WARM BLANKET PROVIDED FROM [facility]. SAFETY CHECK COMPLETED. OP SITE REMAINS THE SAME. NO CHANGES NOTED
[2023-05-06 05:31] LABS: BASOPHILS 0.2 % (0-2); EOSINOPHILS 0.2 % (0-6); HEMATOCRIT 33.9 % (35.0-50.0); HEMOGLOBIN 11.4 g/dL (12.0-18.0); MCH 30.3 (27-36); MCHC 33.7 g/dl (30-36); MONOCYTES 11.1 % (0-12); NEUTROPHILS 71.5 % (39-80); PLATELET COUNT 184 K/uL (140-440); RBC 3.76 M/ul (4.3-5.7); RDW 13.6 (10.5-15.0)
[2023-05-06 05:39] LABS: ANION GAP 12.8 (7-21); BUN/CREATININE RATIO 15.55 (6.0-28.6); CALCIUM 8.2 mg/dL (8.5-10.1); CREATININE, SERUM 1.35 mg/dL (0.55-1.02); POTASSIUM 3.8 mmol/L (3.5-5.1)
--- NOTE | 2023-05-06 05:56 | NUR ---
PATIENT JANESSA HAD A FAIRLY PLEASANT AND UNREMARKABLE NIGHT. MINIMAL CHANGES HAVE BEEN NOTED IN THE LLE OPERATION SITE. SKIN REMAINS ECCHYMOTIC AND +1EDEMA NOTED. NEURO- ALERT AND ORIENTED X2-3. SOME CONFUSION NOTED TO SITUATION AROUND 2AM. OTHERWISE JANESSA IS ORIENTED TO PLACE, SITUATION, AND SELF. ABLE TO MOVE ALL EXTREMITIES, FOLLOWS COMMANDS, ABLE TO LOCALIZE AND REPORT PAIN, PERRL CARDIO- SR-ST. NORMOTENSIVE, 1+ EDEMA NOTED IN LLE IMPROVED FROM +2 AT COMMENCEMENT OF SHIFT, AFEBRILE, PALPABLE PULSES IN ALL 4 EXTREMITIES +2 RESP- BREATH SOUNDS CLEAR, SPO2 ABOVE 93% ON RA, ABLE TO COUGH AND DEEP BREATH GI/- ADVANCED DIET TO GENERAL THIS AM. ABLE TO HOLD DOWN ALL FLUIDS GIVEN THROUGHOUT THE EVENING. NORMOACTIVE BOWEL TONES NOTED IN ALL QUADRANTS, ABDOMEN SOFT AND NON TENDER. INDWELLING GARCIA CATHETER REMAINS PATENT AND INTACT INT- SEE ASSESSMENT.
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
--- NOTE | 2023-05-06 07:11 | NUR ---
report from Aga LEO, call light in reach - resp even, eyes closed. harding draining,
[2023-05-06 07:31] VITALS: BP 101/58
--- NOTE | 2023-05-06 08:51 | NUR ---
IN ROOM WITH PT, POOR INTAKE, ENC FLUIDS, LEFT AC IV SL. PROVIDED SODA PER HER REQUEST. AT THIS TIME SHE IS AWARE OF HER HOME MEDICATIONS AND REFUSES TO TAKE STOOL SOFTNER - REPORTS CHRONIC LOOSE STOOLS. ENC PT TO MOVE TOES AND FEETS TO PREVENT BLOOD CLOTS AND EDUCATED PT ON XARALTO AND NEW MEDICATIONS PER GRADY PROTOCOL. PT GIVEN PO TYLENOL BUT DENIES PAIN.
--- NOTE | 2023-05-06 09:34 | NUR ---
CCU ROUNDS. PT EXHIBITED STRONG SPIRITUAL RESOURCES; SITUATIONALLY APPROPRIATE RESPONSES. PROVIDED SUPPORTIVE PRESENCE; LISTENED EMPATHETICALLY; PROVIDED PRAYER. PT EXPRESSED GRATITUDE.
--- NOTE | 2023-05-06 10:15 | NUR ---
dr jackson in with pt, removed left leg exterior drsg. bleeding noted to abd that was removed and below calf on chux pad - this rn replaced chux and dr advised not to replace the abd to leg, ok if drains. pt wiggles toes bilaterally and pp intact. dr instructed staff to bulk picker leg to assist in movement by the external fixator - pt tollerated this well. discussed leg spasms and home medications. pt denies needs at this time, harding drained for 50 ml of clear urine - encouraged pt to drink fluids - iv sl. OT was in to eval and treat prior to and worked with pt in bed - non weight bearing. pt call light in reach.
--- NOTE | 2023-05-06 10:40 | NUR ---
UR NOTE MCG TIBIA/FIBULA SHAFT FRACTURE,CLOSED OR OPEN REDUCTION (ISC) INPATIENT 05/05/23 MET CLINICAL INDICATIONS FOR PROCEDURE GL DAY 1
--- NOTE | 2023-05-06 11:23 | NUR ---
pt family in room at this time visiting, pt talkative and denies needs. call light in reach.
--- NOTE | 2023-05-06 11:33 | NUR ---
pt, and family in room, this rn let huber know they were here - before they left rn provided dc urban and regional planner contact to family as they were asking about plan - assured that she would make contact with pt and assist with her needs for therapy, and other information related to dc home, family and pt thankful. PT in room after and now working with pt.
[2023-05-06 12:00] VITALS: BP 109/63
--- NOTE | 2023-05-06 14:15 | NUR ---
bed bath, cath care with wipes, and shower cap with hair brush out of matted hair done by this rn, oral care. pt recived po pain meds for c/o left leg pain after a busy day with therapy - po oxy and scheduled meds given - including her home med that she requested for anxiety. pt was pleasant and visited with this nurse during cares. call light in reach - left pedal pulse wnl and pt drsg is unchanged with external fixator in place.
[2023-05-06 16:00] VITALS: BP 99/60
--- NOTE | 2023-05-06 16:36 | EKG ---
[facility] [address] [facility] [place] [address] Signed Sinus bradycardia Otherwise normal ECG When compared with ECG of 11-SEP-2020 10:41, Nonspecific T wave abnormality now evident in Lateral leads Confirmed by DAWN VEGA MD ([id number]) on 05/06/2023 4:36:29 PM Electronically Signed By: DAWN VEGA 05/06/23 1636 PATIENT NAME: STACIE MUNOZ Electrocardiogram DATE OF : 47 PHYSICIAN: DAWN VEGA REPORT #: [id number] REPORT IS CONFIDENTIAL AND NOT TO BE RELEASED WITHOUT AUTHORIZATION
--- NOTE | 2023-05-06 16:41 | NUR ---
IN ROOM FOR VS AND OUTPUT CHARTING. PT ALERT AND ORIENTED, TALKATIVE. URINE OUTPUT DARK IN COLOR, RN AWARE. ENCOURAGED PT TO KEEP DRINKING PLENTY OF FLUIDS. PT DENIES ANY NEEDS. CALL LIGHT WITHIN REACH.
--- NOTE | 2023-05-06 17:00 | NUR ---
In to speak with Darnell, we worked together in the past. She lives in a 2 story home with her spouse. She uses the upstairs for computer access. She denies steps into the home. Pt has an extenal fixator in place and I attempted to discuss what care she will need on dc. Darnell states she now has dementia. She is the cg for her 90 spouse. Spouse's son helps frequently. I gave Darnell a list of SNFs and [facility] and explained SNFs are covered by Medicare and ALFS/residential cares are out of pocket. She states Florin, her spouse, is against placement. We then discussed how she can care for herself at home. I encouraged her to consider a SNF. She states she would like to go to [place], but will need to discuss with Florin. She has a cane and a walker at home. Likely will need a wc. I'll speak with Dr. Dunaway on Tuesday about a plan and what pts needs will be. We also discussed about a cg to live in the home and she states Florin would not agree to this.
--- NOTE | 2023-05-06 18:00 | NUR ---
PT REPOSITIONED - LEG DRSG IS UNCHANGED - PT WIGGLES TOES CMS WNL. PT TURNED SELF TO RIGHT SIDE OF CHOICE TO REPOSITION, RN ASSISTED PT TO PLACE PILLOW TO LEFT SIDE. CALL LIGHT IN REACH, DENIES NEEDS, LOWERED HEAD OF BED.
[2023-05-06 20:00] VITALS: BP 91/54
--- NOTE | 2023-05-06 22:00 | NUR ---
Patient transferred via bed from CCU to Med- surg floor RM 122. Patient is a/o, cooperative, appears comfortable, oriented to room, Continuos pulse on post surgery with sats >92% on room, Educated pt. DB&C periodically and showed her and she did use her trumpet. Repositioned in bed with 3 person assist. 2 to left and one to hold the left leg off the bed (by grasping the long rods of the external fixator) while moving. Patient tolerated well, CMS to lower extremety intact, small amount of serosang drainage from pin sites, Leg from above knee to foot covered with alton wrap. harding intact and secured below level of bed, Patient watching TV now withou complaint, lights on, call light within reach.
[2023-05-06 22:10] VITALS: BP 118/56
--- NOTE | 2023-05-06 23:51 | NUR ---
Patient is going to try and get some sleep now, lights out and TV off, call light within reach.
--- NOTE | 2023-05-07 02:05 | NUR ---
Patient sleeping between care, VSS, CMS intact, Pin sites without change, Minimal change in drainage, Patien without complaint of discomfort, lights out and call light within reach.
[2023-05-07 03:10] VITALS: BP 127/45
--- NOTE | 2023-05-07 05:01 | NUR ---
Patient transferred to med surg late evening, Comfortable, with harding placed and secured below level of the bed, VSS, To sleep at midnight and has been resting comfortably since. left lower leg dressing and pins intact and does have small amount of sero sang drainage. CMS has been intact. Patient resting with eyes closed, no distress noted, lights are out and call light within reach.
[2023-05-07 05:39] LABS: BASOPHILS 0.5 % (0-2); HEMATOCRIT 32.6 % (35.0-50.0); HEMOGLOBIN 10.9 g/dL (12.0-18.0); LYMPHOCYTES 12.2 % (24-44); MCH 30.3 (27-36); MCHC 33.5 g/dl (30-36); MCV 90.6 fl (81-99); MONOCYTES 11.5 % (0-12); NEUTROPHILS 73.8 % (39-80); PLATELET COUNT 150 K/uL (140-440); RDW 13.9 (10.5-15.0)
[2023-05-07 05:52] LABS: ANION GAP 14.8 (7-21); BUN/CREATININE RATIO 15.38 (6.0-28.6); CALCIUM 8.1 mg/dL (8.5-10.1); CREATININE, SERUM 1.17 mg/dL (0.55-1.02); POTASSIUM 3.8 mmol/L (3.5-5.1)
[2023-05-07 06:00] VITALS: BP 115/57
--- NOTE | 2023-05-07 06:01 | NUR ---
Patient awake, lab doing blood draw, patient medicated for pain pr request, patient continues to have serosang drainage from pin sites, CMS intact, VSS, koki hose but on right lower leg and heel protector. Patient refused heel protector to right heel due to pain and discomfort, Educated patient on rational for the protection she remained adamant that she did not want it on and she would talk to the MD about it. harding remains intact. Patient stated she has been sleeping well. Patient wanting to rest some more, lights out and call light within reach.
--- NOTE | 2023-05-07 07:20 | NUR ---
REPORT RECEIVED FROM AHMET JONES. PT LAYING IN BED AND RESPONDS WHEN ADDRESSED. PT DENIES ANY NEEDS AT THIS TIME. CALL LIGHT IN REACH.
--- NOTE | 2023-05-07 09:01 | NUR ---
IN TO ADMINISTER MEDICATIONS, SEE MAR. PT SITTING UP IN BED EATING BREAKFAST. PT RESPONDS WHEN ADDRESSED. PT TAKES PO MEDICATIONS WITH NO ISSUES. ASSESSMENT COMPLETE. LUNG SOUNDS CLEAR. BOWEL TONES ACTIVE. ABD SOFT AND NON-TENDER WITH PALPATION. LLE DRESSING SANGUENOUS DRAINAGE NOTED BY PIN SITES. PEDAL PULSES PALPABLE BILATERALLY AND EQUAL. PT ABLE TO WIGGLE TOES ON LLE. CMS INTACT BILATERALLY. PT DENIES NUMBNESS OR TINGLING IN LLE. PT REPORTING PAIN 8/10. SCHEDULED TYLENOL ADMINISTERED, SEE MAR. PT DENIES ANY OTHER NEEDS AT THIS TIME. CALL LIGHT IN REACH. DIET HOMER PROVIDED.
[2023-05-07 09:29] VITALS: BP 99/49
--- NOTE | 2023-05-07 09:51 | NUR ---
PRN PAIN MEDICATION ADMINISTERED PER PT REQUEST FOR 910 PAIN IN LEG. PT RESTING IN BED OTHERWISE IN GOOD SPIRITS. CALL LIGHT IN REACH.
--- NOTE | 2023-05-07 11:54 | NUR ---
IN TO ROUND ON PT. PT SITTING UP IN RECLINER. PT RESPONDS WHEN ADDRESSED. PT REPORTING PAIN 9/10 IN LEFT LEG. PT REQUESTING TO USE PHONE. PHONE PROVIDED ALONG WITH INSTRUCTIONS ON HOW TO DIAL OUT. PT DENIES ANY OTHER NEEDS AT THIS TIME. CALL LIGHT IN REACH.
--- NOTE | 2023-05-07 12:37 | NUR ---
IN TO [facility] ON PT. ARELIS LESTER RN IN ROOM ALONG WITH AHMET SUAZO AND AHMET LEE AND JUAQUIN TORRES ASSISTING PT BACK TO BED. PT IN BED. ADELA PAD UNDER LLE. PT DENIES ANY OTHER NEEDS AT THIS TIME. CALL LIGHT IN REACH.
--- NOTE | 2023-05-07 13:31 | NUR ---
IN TO ROUND ON PT. PT SITTING UP IN BED. PT REPORTING PAIN 9/10 TO LLE. PRN PAIN MEDICATION ADMINISTERED, SEE MAR. PARAMJIT CORONEL PROVIDED. PT DENIES ANY OTHER NEEDS AT THIS TIME. CALL LIGHT IN REACH.
[2023-05-07 13:38] VITALS: BP 129/55
--- NOTE | 2023-05-07 13:41 | NUR ---
PATIENT IN BED VITALS AND I/O'S COMPLETED. GARCIA DRAINED AND DOCUMENTED. CATHEDER CARE COMPLETE. PT HAS NO OTHER REQUESTS AT THIS TIME. CALL LIGHT WITHIN REACH.
--- NOTE | 2023-05-07 14:59 | NUR ---
IN TO ROUND ON PT. PT SITTING UP IN BED. PT RESPONDS WHEN ADDRESSED. PT REPORTING PAIN IN LLE 08/09. SCHEDULED TYLENOL ADMINISTERED, SEE MAR. ASSESSMENT COMPLETE. LLE DRESSING INTACT. PEDAL PULSES PALPABLE AND EQUAL BILATERALLY. CMS INTACT TO BLE. PT ABLE TO WIGGLE TOES ON LLE. PT DENIES NUMBNESS OR TINGLING TO LLE. IV ABX ADMINISTERED, SEE MAR. PT DENIES ANY OTHER NEEDS AT THIS TIME. CALL LIGHT IN REACH.
--- NOTE | 2023-05-07 17:01 | NUR ---
IN TO ROUND ON PT. PT SITTING UP IN BED. PT VISITING WITH SON IN LAW. PT REPORTING PAIN 6/10 IN LLE. PT DENIED PRN PAIN MEDICATION WHEN OFFERED. PT REQUESTING HOMER CORONEL PROVIDED. PT DENIES ANY OTHER NEEDS AT THIS TIME. CALL LIGHT IN REACH.
[2023-05-07 18:05] VITALS: BP 125/55
[2023-05-07 21:20] VITALS: BP 127/65
--- NOTE | 2023-05-07 21:43 | NUR ---
awake, alert and oriented, coop with assessments and vitals. Turned and repositioned. On room air, CPOX at bedside, L leg with external fixator in place. old drainage around dressing at insertion site. koki hose and heel protectors in R leg. dopler for pulses. Medicated for 7/10 L leg pain with Oxycodone 10mg and Tylenol 1000mg scheduled. SL patent. f/c patent draining clear yellow urine. fresh ice water and iced 7-up given on requests, hob eelavated to comfort. turned slightly towards L
--- NOTE | 2023-05-08 01:31 | NUR ---
resting, no further c/o pain
--- NOTE | 2023-05-08 02:15 | NUR ---
Resting, eyes closed, on room air, no distress. L leg external fixators in place, fresh and old drainage present at insertion site. area under fixator covered with axe wrap.
--- NOTE | 2023-05-08 04:00 | NUR ---
RESTING, EYES CLOSED, NO DISTRESS. LEFT LEG DRESSING WITH SMALLL NEW AND OLD DRAINAGE. EXTERNAL FIXATOR IN PLACE. CALL LIGHT AND FLUIDS AT BEDSIDE.NO S/SX PAIN
[2023-05-08 05:35] LABS: BASOPHILS 0.5 % (0-2); EOSINOPHILS 2.6 % (0-6); HEMATOCRIT 29.3 % (35.0-50.0); HEMOGLOBIN 9.7 g/dL (12.0-18.0); LYMPHOCYTES 15.4 % (24-44); MCH 30.4 (27-36); MCHC 33.2 g/dl (30-36); MCV 91.7 fl (81-99); MONOCYTES 11.3 % (0-12); NEUTROPHILS 70.2 % (39-80); PLATELET COUNT 166 K/uL (140-440); RBC 3.19 M/ul (4.3-5.7); RDW 13.9 (10.5-15.0)
[2023-05-08 05:44] LABS: ANION GAP 13.2 (7-21); POTASSIUM 4.2 mmol/L (3.5-5.1)
[2023-05-08 06:29] VITALS: BP 118/59
--- NOTE | 2023-05-08 06:41 | NUR ---
Has slept, awakes easily. on room air. L leg dressing with old drainage. alton wrap/wrapping slightly removed by pt while scratching her own leg, Instructed not to and to call RN as we can give her something for itching. Pt has Vistaril. no further c/o pain. f/c patent. Declines to be turned.
--- NOTE | 2023-05-08 07:13 | NUR ---
Got report from lieutenant shift supervisor nurse.
--- NOTE | 2023-05-08 07:16 | NUR ---
Into check on patient. Patient currently laying in bed resting but opens eyes when this nurse walks in. Pt denies any cares at this time. Pt has fresh water, call light within reach. She is going to get some more sleep and call this nurse if she needs anything.
--- NOTE | 2023-05-08 09:08 | NUR ---
MORNING ASSESSMENT DONE. PATIENT STATES SHE FEELS WAY MORE POSITIVE THIS MORNING WITH HOW THINGS ARE GOING. SHE IS GOING TO WATCH SOME TV. FINISHED HER BREAKFAST. PATIENT STATES PAIN IS CONTROLED AT THIS TIME. SHE IS MAKING HER SELF PUSH FLUIDS. CALL LIGHT WITHIN REACH. PATIENT GIVEN MORNING MEDICATIONS. PATIENT SAW THIS MORNING AND UNDERSTANDS HER PLAN OF CARE.
[2023-05-08 10:23] VITALS: BP 102/59
--- NOTE | 2023-05-08 10:24 | NUR ---
PATIENT JUST GOT BACK FROM PT. BILLIARD TABLE REPAIRER CAME TO FIND ME SHE WAS FEELING LIGHTHEADED AND STARTED TO VOMIT. VITALS TAKEN, WNL. PATIENT CLEANED UP BY BOTH BILLIARD TABLE REPAIRER'S. ZOFRAN WAS GIVEN. COLD WASH CLOTHED APPLIED TO FORHEAD. PATIENT IN CHAIR WITH FEET UP.
--- NOTE | 2023-05-08 11:03 | NUR ---
PATIENT STILL UP IN THE CHAIR RESTING. SHE DID VOMIT AGAIN 150ML WHILE I WAS GONE. PATIENT TRIED 7UP AND IT JUST CAME BACK UP. APPLIED ANOTHER COLD WASH CLOTH TO PATIENTS FORHEAD. THIS NURSE TALKED TO PT AND HE ADVISED ME THAT SHE DID REALLY GOOD BUT DID C/O FEELING NAUSEATED WHEN STANDING. PT IS STARTING TO GET SOME COLOR BACK IN HER SKIN. WILL CONTINUE TO MONITOR.
--- NOTE | 2023-05-08 13:12 | NUR ---
PATIENT STILL NAUSEATED AND NOT FEELING WELL. PATIENT STILL FEELS LIGHTHEADED AND WOULD LIKE TO GET OUT OF THE CHAIR AND INTO BED.
[2023-05-08 13:53] VITALS: BP 122/47
--- NOTE | 2023-05-08 14:02 | NUR ---
PATIENT MOVED FROM CHAIR TO BED WITH NURSE AND ASSISTANT PRODUCT MANAGER. PATIENT TOLERATED WELL, NON WEIGHT BARING ON THE LEFT LEG. PATIENT WAS SLIGHTLY NAUSEATED AFTER MOVING BUT COOL WASH CLOTH AND SLOW BREATHING HELPED.
--- NOTE | 2023-05-08 15:16 | NUR ---
PATIENT GIVEN MEDICATIONS. OVERALL PATIENT IS FEELING LOTS BETTER NOW SINCE BEING BACK IN BED AND RELAXING. PATIENT CURRENTLY WATCH TV SITTING UP IN BED.
[2023-05-08 17:57] VITALS: BP 150/59
[2023-05-08 21:18] VITALS: BP 136/48
--- NOTE | 2023-05-08 21:38 | NUR ---
PT REPOSITIONED IN BED, HOB ELEVATED, FRESH FLUIDS AND 7-UP GIVEN ON REQUESTS, TOOK MEDS W/O PROBLEMS. C/O 11/08 L LEG PAIN. MEDICATED WITH OXYCODONE 10MG, TYLENOL 1000MG PO SCHEDULED, AND VISTARIL 25MG PER ITCHING L LEG. L LEG COVERED WITH FACUNDO WRP AND SOFT COTTON PADDING, SMALL AMOUNT OF DRAINAGE SEEPING FROM INSERTION SITE OF EXTERNAL ROTATOR. COOP WITH ASSESSMENT OF L LEG. ALDO ON R LEG SL RAC PATENT.
[2023-05-09] VITALS (7 sets, daily range): BP systolic 133–149; BP diastolic 55–91
--- NOTE | 2023-05-09 00:34 | NUR ---
Resting, eyes closed, no further c/o pain. on room air, IVF infusing, f/c patent. dressing to L leg withold drainage, external fixator in place. NPO at this time for AM surgical procedure with Dr Dunaway
--- NOTE | 2023-05-09 03:10 | NUR ---
RESTING, NO DISTRESS, L LEG DRESSING WITH OLD DISCHARGE. EXTERNAL FIXATOR IN PLACE. FOOT CRADDLE IN PLACE. F/C PATENT, IVF INFUSING
--- NOTE | 2023-05-09 04:50 | NUR ---
RESTING, NPO FOR AM PROCEDURE, L EXTERNAL FIXATOR IN PLACE, DRESSING WITH OLD DRAINAGE
[2023-05-09 05:41] LABS: BASOPHILS 0.2 % (0-2); EOSINOPHILS 1.2 % (0-6); HEMATOCRIT 27.4 % (35.0-50.0); HEMOGLOBIN 9.2 g/dL (12.0-18.0); LYMPHOCYTES 9.8 % (24-44); MCH 30.8 (27-36); MCHC 33.6 g/dl (30-36); MCV 91.4 fl (81-99); MONOCYTES 11.8 % (0-12); PLATELET COUNT 208 K/uL (140-440); RDW 13.8 (10.5-15.0)
--- NOTE | 2023-05-09 05:42 | NUR ---
PT NPO FOR AM SURGICAL PROCEDURE. HAS TOLERATED IT WELL, DOES OWN ORAL CARE WITH MOIST SPONGES. WAS MEDICATED X1 PER C/O L LEG PAIN WITH SCHEDULED TYLENOL AND PRN OXYCODONE, EFFECTIVE AND VISTARIL FOR ITCHING. L LEG DRESSING WITH OLD AND SMALL AMOUNT OF DRAINAGE FROM EXTERNAL FIXATOR 4 INSERTION SITES. STATED SLIGHT NUMBNESS TO L FOOT BUT SHE CAN FEEL TOUCHES.HELPS WITH REPOSITIONING. FOOT CRADDLE IN PLACE. F/C PATENT
[2023-05-09 05:57] LABS: ANION GAP 13.7 (7-21); CALCIUM 8.1 mg/dL (8.5-10.1); POTASSIUM 3.7 mmol/L (3.5-5.1)
--- NOTE | 2023-05-09 09:25 | NUR ---
MORNING ASSESSMENT COMPLETE. PATIENT IS RESTING IN BED, MORNING MEDICATIONS GIVEN WITH SIP OF WATER. PATIENT RATES LEFT LEG PAIN 5/10, SCHEDULED TYLENOL GIVEN. LEFT LEG IS NOT ELEVATED AT THIS TIME, PATIENT REPORTS HER LEFT HIP IS HURTING. PLAN TO REPOSITION PATIENT. GARCIA CARE DONE. FRESH ATTENDT PLACED. PATIENT REPOSITIONED TO BACK, PILLOW UNDER LEFT SIDE. PATIENT TOLERATED ACTIVITY FAIR.
--- NOTE | 2023-05-09 09:30 | NUR ---
Spoke with Darnell, she is returning to surgery today. She denies needs. She discussed placement with her spouse and his son. They would prefer pt not use [facility]. She wants to discuss with Dr. Dunaway.
--- NOTE | 2023-05-09 11:04 | NUR ---
PATIENT IS RESTING IN BED, DENIES NEEDS.
--- NOTE | 2023-05-09 12:11 | NUR ---
Two CNAs assisted pt with chlorhexidine surgical wipe down. Catheter care provided. [facility] gown on. One SCD placed on the right leg. Call light within reach. Denies any other needs at this time.
--- NOTE | 2023-05-09 12:22 | NUR ---
PATIENT IS RESTING IN BED. PATIENT DENIES PAIN AT REST.
--- NOTE | 2023-05-09 13:21 | NUR ---
UR NOTE MCG TIBIA/FIBULA SHAFT FRACTURE, CLOSED OR OPEN REDUCTION (ISC) 05/08/22 MET GL DAY 2
--- NOTE | 2023-05-09 13:37 | NUR ---
PATIENT TO SURGERY WITH HERB ROJAS TAPED TO IVF BAG.
--- NOTE | 2023-05-09 14:31 | NUR ---
05/09/23 1431 Alice Taylor LE 1421: PT ARRIVES TO PACU ALSEEP AND NON-REACTIVE TO STIMULI. LE 1430: PT STILL NON-REACTIVE TO STIMULI. TACTILE OR VERBAL. CMS IS INTACT IN LLE.
--- NOTE | 2023-05-09 15:20 | NUR ---
PATIENT ARRIVED BACK FROM SURGERY. VITAL ARE STABLE. PATIENT IS ON 2L 02 FOR 100% SATS DUE TO BEING SLEEPY. O2 DOWN TO 1L. HEEL MEDIX HEEL PROTECTOR APPLIED TO THE LEFT LEG. NO OTHER NEEDS AT THIS TIME.
--- NOTE | 2023-05-09 15:57 | NUR ---
second set of vitals done. pt resting in bed, states she is comfortable at this time. rates pain at 1/10 to LLE. scheduled acetaminophen given. pt taking sips of water, and eating saltines. tolerating well.
--- NOTE | 2023-05-09 21:09 | NUR ---
IV ALARMING, PT BENT ARM, NEW BAG IV FLUID INFUSING. PT WOKE TO SOUND STATES SHE GETS TO SLEEP THEN HER LEG "JERKS" WAKES HER UP. NO NEEDS VOICED.
--- NOTE | 2023-05-09 21:43 | NUR ---
Awake, pleasant, cooperative, c/o 8/10 L leg pain. Medicated with 10mg Oxycodone and scheduled Tylenol, vistaril given at her request. L leg able to wigle toes slowly, bruised, no edema at feet. L leg w external fixator in place, serosanguineos drainage from 4 insertion sites noted in dressing and chux.. Gauze dressing with old and small amount of new drainage. tender and edematous below knee to ankle. bruised areas hands and Left side of body, healling. tolerating liquids well. IVF RAC infusing w/o problems. Turned and repositioned to her comofrt. f/c patent, draining medium yellow colored urine. stated that she will be here a few more days as Dr Dunaway is gonig to take her back to surgery . Pt aware of non weight bearing L leg.
--- NOTE | 2023-05-10 01:09 | NUR ---
Resting eyes closed, no distress, IVF infusing, cather patent. L leg external fixators in place, Kerlix dressing with old and small amount serosanguineous drainage, Heel medi in L foot, regular heel protectors in R foot, foot craddle in place
--- NOTE | 2023-05-10 03:15 | NUR ---
Pt hob elevated, awake, l leg dressing with ss drainage at external fixators inertion site. c/o 7/10 l leg pain. medicated with 10mg Oxycodone
--- NOTE | 2023-05-10 04:47 | NUR ---
Resting, on room air, no s/sx distress. L leg external fixator in place, Lower extremity kerliz dressing with old drainage, heel protectors in place
[2023-05-10 05:54] VITALS: BP 121/48
--- NOTE | 2023-05-10 06:05 | NUR ---
has slept, on room air, Was medicated twice with Oxycodone 10mg po per Left leg pain, effective, gets Tylenol scheduled. L leg external Fixator inplace. serosanguineous drainage at insertion site dripping into kerliz bandage. edematous. good CMS toes, heelmedi in place, scds heel protectors in place R leg, tedhose not replaced after being taken off her request. no bm since 05/05/22, has declined MOM and senna tabs. Instructed on need for bowel care since she is taking analgesics, stated understanding. f/c patent draining yellow urine. IVF changed to SL at thist mery. she has been tolerating liquids well and IVF was ordered as she was NPO for 05/09 procedure. no emesis. pleasant and cooperative
--- NOTE | 2023-05-10 06:55 | OR ---
[facility] [address], [place] [address] Signed DATE OF OPERATION: 05/09/2023 SURGEON: Denia Dunaway MD PREOPERATIVE DIAGNOSIS: Left open tib-fib fracture with degloving, status post ex-fix. POSTOPERATIVE DIAGNOSIS: Left open tib-fib fracture with degloving, status post ex-fix. PROCEDURE PERFORMED: Exam under anesthesia and dressing change, left lower extremity. DIRECTOR CHILD: None. ANESTHESIA: Conscious sedation. BLOOD LOSS: None. BRIEF HISTORY: Stacie is a 77-year-old female, who suffered a degloving injury with an open tib-fib fracture on . She was taken emergently to the operating room, placed an external fixator and the very large flap of skin was debrided and repaired. She was brought back today for exam under anesthesia and dressing change. Risks, benefits, and alternatives were discussed with her and she understood, wished to proceed. DESCRIPTION OF PROCEDURE: Once consent was obtained, she was taken to the operating room, placed on the operating table. All downside pressure points were well padded. The external fixator was suspended from two using Kerlix. The dressing was then removed. The flap was intact with extensive epidermolysis. There was a small area of necrotic probably full-thickness necrosis at the superior lateral aspect of the flap. This measured 6 x 10 cm. The remainder of the flap was warm and appeared to be perfusing. The leg was then cleansed using Hibiclens and dressed with Silvadene dressing, Xeroform, ABDs and Kerlix gauze. She was taken to the recovery room in satisfactory condition. All sponge, needle, and instrument counts were correct. Electronically Signed By: DENIA DUNAWAY MD 05/10/23 0655 PATIENT NAME: STACIE MUNOZ OPERATIVE REPORT DATE OF : 47 REPORT #: [id number] PHYSICIAN: DENIA DUNAWAY MD PCP: KERMIT DERAS MD REPORT IS CONFIDENTIAL AND NOT TO BE RELEASED WITHOUT AUTHORIZATION [address] [address] Signed Denia Dunaway MD BA/LAMONTL /[id number] Copies: ~ Electronically Signed By: DENIA DUNAWAY MD 05/10/23 0655 PATIENT NAME: STACIE MUNOZ OPERATIVE REPORT DATE OF : 47 REPORT #: [id number] PHYSICIAN: DENIA DUNAWAY MD PCP: KERMIT DERAS MD REPORT IS CONFIDENTIAL AND NOT TO BE RELEASED WITHOUT AUTHORIZATION
--- NOTE | 2023-05-10 07:15 | NUR ---
REPORT RECEIVED FROM LIQUID SUGAR FORTIFIER RN TIFF. BEDSIDE REPORT COMPLETE. PATIENT IS AWAKE AND RESPONDING TO NURSES. PATIENT STATED NO FURTHER NEEDS AT THIS TIME. CALL LIGHT AND PERSONAL BELONGINGS ARE WITHIN REACH.
[2023-05-10 10:00] VITALS: BP 152/70
--- NOTE | 2023-05-10 11:00 | NUR ---
Spoke with Darnell. She has now decided she would like to go to [facility] on ut. She does not want to be placed out of town. She would also like to complete a POA with her step son. I let her know she will need to do this with a notary. She then states her business process associate may be working on this. I will fax her chart to [facility]. She states son and spouse don't want her to go to [facility], but she declines placement out of town.
--- NOTE | 2023-05-10 11:26 | NUR ---
MORNING MEDICATIONS ADMINISTERED PER THE EMAR. PATIENT WORKED WITH PT AND IS NOW SITTING UP IN THE RECLINER. PATIENT FULL ASSESSMENT COMPLETE AND DOCUMENTED IN THE CHART. PATIENT STATED PAIN WAS 5/10 IN THE LEFT LOWER EXTREMITY. PATIENT GIVEN TYLENOL PRIOR TO WORKING WITH PT. PATIENT IV SITE IS CLEAN, DRY, AND INTACT. IV SITE FLUSHED WELL WITH 10 ML NORMAL SALINE. LUNG SOUNDS ARE BILATERALLY IN ALL LUNG MAC. NORMAL S1 AND S2 AUSCULTATED. PATIENT IS ALERT AND ORIENTED TO PERSON, PLACE, AND SITUATION. LEFT LOWER EXTREMITY WITH EXTERNAL FIXATION. DRESSING WITH OLD AND NEW DRAINAGE THAT IS SEROSANGUINOUS. BOWEL TONES ARE ACTIVE IN ALL FOUR QUADRANTS. PATIENT STATED NO FURTHER NEEDS AT THIS TIME. CALL LIGHT AND PERSONAL BELONGINGS ARE WITHIN REACH.
--- NOTE | 2023-05-10 12:05 | NUR ---
PATIENT GIVEN PRN ZOFRAN FOR NAUSEA. PATIENT STATED FEELING A LITTLE DIZZY AND LIGHT HEADED. BP TAKEN AND IT WAS 135/50. PATIENT SPEAKING WITH SPIRITUAL CARE AT THIS TIME. PATIENT STATED NO FURTHER NEEDS AT THIS TIME. CALL LIGHT AND PERSONAL BELONGINGS ARE WITHIN REACH.
--- NOTE | 2023-05-10 12:13 | NUR ---
ROUNDS. PT EXPRESSED SOME CONCERN REGARDING HEALING PROGRESS; EXHIBITED ADEQUATE SPIRITUAL RESOURCES; CONSENTED TO PRAYER. PROVIDED SUPPORTIVE PRESENCE; LISTENED EMPATHETICALLY; PROVIDED HOSPITALITY; PROVIDED PRAYER. PT EXPRESSED GRATITUDE AND HOPE. FOLLOW UP NEEDED.
--- NOTE | 2023-05-10 12:32 | NUR ---
PATIENT NOW VOMITING. PATIENT GIVEN PRN COMPAZINE PER THE EMAR. PATIENT THREW UP SMALL AMOUNT OF LIQUID. PATIENT IV SITE IS NOW SALINE LOCKED. PATIENT STATED NO FURTHER NEEDS AT THIS TIME. CALL LIGHT AND PERSONAL BELONGINGS ARE WITHIN REACH.
[2023-05-10 13:32] VITALS: BP 134/60
--- NOTE | 2023-05-10 16:00 | NUR ---
PATIENT MOVED BACK TO THE BED FROM THE RECLINER. PATIENT WITH FWW AND TWO PERSON ASSIST. PATIENT TOLERATED WELL. PATIENT IS SITTING IN BED AND NOT EXPRESSING ANY PAIN OR DISCOMFORT AT THIS TIME. CALL LIGHT AND PERSONAL BELONGINGS ARE WITHIN REACH.
[2023-05-10 18:13] VITALS: BP 128/50
--- NOTE | 2023-05-10 18:40 | NUR ---
RN CALLED TO CLARIFY SURGERY DAY FOR TOMORROW. NOTIFIED OF MODERATE AMOUNT OF SEROSANGUINOUS DRAINAGE ON THE DRESSING. NO NEW ORDERS AT THIS TIME. CALL ENDED.
--- NOTE | 2023-05-10 19:05 | NUR ---
RECEIVED REPORT FROM MECCA RN. PT IN BED, EYES CLOSED, RESP EVEN AND UNLABORED.
--- NOTE | 2023-05-10 19:50 | NUR ---
PT CALLED SAID HER "HEEL WAS BURNING"; THIS RN AND YEAST PUMPER INTO ROOM. PT WITHOUT THE HEELIX HEEL PROTECTION ON LEFT SIDE. WITH ASSIST ON SECOND RN TO LIFT THE LEG, THIS RN ASSESSED HEEL, FIRM, NOT SPONGY, HEELIX HEEL PROT. ON FOOT, PT STATED NEARLY RELIEF. HEEL PROTECTION PUT ON THE RIGHT FOOT WELL.
[2023-05-10 21:38] VITALS: BP 132/49
--- NOTE | 2023-05-10 22:15 | NUR ---
HS MEDICATIONS GIVEN, ANXIOUS TO SLEEP STATES SHE TAKES A MEDICATION AND SHE IS SO TIRED. PRN MEDICATION GIVEN. RADHA MURRAY, PT AWARE SHE IS NPO AFTERMIDNIGHT. ENCOURAGED PT TO ACCEPT A SENNA PT HAS NOT HAD A BM SINCE ADMISSION, AND PT UNABLE TO DETERMINE IF SHE HAD BM ON DAY OF THE ACCIDENT. AGREED TO TAKE A SENNA, DOES SAY SHE "ISN'T EATING" HOWEVER, EXPLAINED AND EDUCATED PT ON TAKING THE SENNA.
--- NOTE | 2023-05-10 23:00 | NUR ---
THIS RN TO ASSUME CARE OF PT. REPORT RECEIVED. PT LYING IN BED RESTING WITH EYES CLOSED. RESPIRATIONS EVEN. CALL LIGHT IN REACH. WHITE BOARD UPDATED.
--- NOTE | 2023-05-10 23:28 | NUR ---
IV FLUIDS INFUSING, ANTIBIOTIC WELL. PT WAKES TO VOICE BUT CLOSES EYES, RESP EVEN AND UNLABORED.
[2023-05-11] VITALS (9 sets, daily range): BP systolic 118–148; BP diastolic 47–81
--- NOTE | 2023-05-11 02:45 | NUR ---
PT RESTING IN BED WITH EYES CLOSED. RESPIRATIONS EVEN. CALL LIGHT IN REACH.
--- NOTE | 2023-05-11 05:01 | NUR ---
PT AWAKE IN BED. VS AND I&O OBTAINED, WNL. PT REPORTS LLE PAIN 11/08. PRN FOR PAIN ADMIN WITH A SIP OF WATER. 2PA TO REPOSITION IN BED. ASSESSMENT COMPLETE. CMS INTACT BILAT. BRISK CAP REFILL NOTED. STRONG PEDAL PULSES PALPATED BILAT. ADAN/HP/SCD TO RIGHT LEG. EXTERNAL FIXATOR IN PLACE ON LLE. SEROSANG DRAINAGE NOTED. PAD UNDER LEG CHANGED. HEEL PROTECTOR IN PLACE ON LEFT FOOT. PT NPO FOR PROCEDURE. IVF INFUSING WNL. GARCIA PATENT WITH YELLOW URINE. PT DENIES FURTHER NEEDS. CALL LIGHT IN REACH.
--- NOTE | 2023-05-11 06:38 | NUR ---
PT RESTING IN BED WATCHING TV. REPORTS LLE PAIN IMPROVED 2/10 AFTER PRN FOR PAIN ADMIN. IV ABX INFUSING PER ORDER. NO NEEDS AT THIS TIME.
--- NOTE | 2023-05-11 07:20 | NUR ---
REPORT RECEIVED FROM CLIENT SPECIALIST RN RACHAEL. PATIENT IS LYING IN BED WITH THE HOB ELEVATED. PATIENT IS AWAKE AND RESPIRATIONS ARE EVEN AND UNLABORED. PATIENT ASKED WHAT TIME SURGERY WOULD BE AND PATIENT NOTIFIED THAT I DO NOT HAVE A TIME YET. PATIENT STATED NO FURTHER NEEDS AT THIS TIME. CALL LIGHT AND PERSONAL BELONGINGS ARE WITHIN REACH.
--- NOTE | 2023-05-11 08:06 | NUR ---
PATIENT 0800 AND 0900 MEDICATIONS ADMINISTERED PER THE EMAR. PATIENT FULL ASSESSMENT COMPLETE AND DOCUMENTED IN THE CHART. PATIENT STATED PAIN OF 4/10 IN THE LEFT LOWER EXTREMITY THAT "FEELS LIKE FIRE". PATIENT LUNG SOUNDS ARE CLEAR BILATERALLY IN ALL LUNG MAC. NORMAL S1 AND S2 UPON AUSCULTATION. RADIAL AND PEDAL PULSES ARE STRONG BILATERALLY. CAPILLARY REFILL IN THE UPPER AND LOWER EXTREMITTIES ARE LESS THAN THREE SECONDS BILATERALLY. BOWEL TONES ARE ACTIVE IN ALL FOUR QUADRANTS. BRUISING NOTED ON THE RIGHT HAND, LEFT HAND, AND SCATTERED ALONG THE LEFT ARM. LEFT LOWER EXTREMITY DRESSING WITH SEROSANGUINOUS DRAINAGE ON THE GAUZE WRAP AND THE CHUX UNDERNEATH THAT EXTREMITY. PATIENT KIKE AND CATHETER CARE COMPLETE. HAIR CARE AND ORAL CARE COMPLETE AT THIS TIME TOO. PATIENT IV SITE IS CLEAN, DRY, AND INTACT. IV FLUIDS (LACTATED RINGERS) INFUSING AT 75 ML/HR. PATIENT STATED NO FURTHER NEEDS AT THIS TIME. CALL LIGHT AND PERSONAL BELONGINGS ARE WITHIN REACH.
--- NOTE | 2023-05-11 10:30 | NUR ---
Spoke with Darnell and she denies c/o. She cont. to want to go to [place] when discharged. She denies any needs.
--- NOTE | 2023-05-11 10:41 | NUR ---
ROUNDS. PT EXPRESSED FRUSTRATION AND ANXIETY. LISTENED EMPATHETICALLY; PROVIDED SUPPORTIVE PRESENCE; PROVIDED HOSPITALITY; PROVIDED SILENT PRAYER. PT EXPRESSED GRATITUDE.
--- NOTE | 2023-05-11 10:44 | NUR ---
PATIENT SITTING IN THE BED WITH THE HOB ELEVATED. PATIENT STATED PAIN IS 2/10 AND TOLERATING WELL. PATIENT STATED NO FURTHER NEEDS AT THIS TIME. CALL LIGHT AND PERSONAL BELONGINGS ARE WITHIN REACH.
--- NOTE | 2023-05-11 11:25 | NUR ---
PATIENT TAKEN TO OR. WIPE DOWN AND BEDDING/GOWN CHANGE COMPLETE BY AHMET MATTHEW AND JUAQUIN TORRES. PATIENT TOLERATED WELL. PRE-OPERATIVE CHECKLIST COMPLETE.
--- NOTE | 2023-05-11 12:12 | NUR ---
05/11/23 1212 Lali Dunaway PT TO PACU AWAKE AND ALERT DENIES PAIN AND NAUSEA. LT FOOT CMS IN TACT.
--- NOTE | 2023-05-11 12:44 | NUR ---
PATIENT BACK TO THE FLOOR. REPORT RECEIVED FROM NICOLETTE FROM DAY SURGERY/PACU. DRESSING WITH NO DRAINAGE ON IT AT THIS TIME. PATIENT STATING HAVING VERY LITTLE PAIN AT THIS TIME. CPOX SET UP AND IN PLACE. PATIENT WITH SOMETHING TO DRINK AT THE BEDSIDE. PATIENT STATED NO NEEDS AT THIS TIME. CALL LIGHT AND PERSONAL BELONGINGS ARE WITHIN REACH.
--- NOTE | 2023-05-11 13:35 | NUR ---
PATIENT IS ALERT AND ORIENTED TIMES FOUR. PATIENT LACTATED RINGER INFUSING AT 75 ML/HR. IV SITE IS CLEAN, DRY, AND INTACT. PATIENT EXPRESSED NO PAIN WITH FLUIDS INFUSING. CPOX AT THE BEDSIDE. PATIENT EXPRESSING PAIN OF 5/10 AND WANTING TO WAIT UNTIL THE SCHEDULED TYLENOL. LEFT LOWER EXTREMITY IS CLEAN, DRY, AND INTACT WITH EXTERNAL FIXATION. PATIENT STATED NO FURTHER NEEDS AT THIS TIME. CALL LIGHT AND PERSONAL BELONGINGS ARE WITHIN REACH.
--- NOTE | 2023-05-11 15:51 | NUR ---
PATIENT LYING IN BED WITH FAMILY MEMBER AT THE BEDSIDE. CPOX IN PLACE. IV FLUIDS ARE RUNNING. PATIENT AND FAMILY STATED NO FURTHER NEEDS AT THIS TIME. CALL LIGHT AND PERSONAL BELONGINGS ARE WTIHIN REACH.
--- NOTE | 2023-05-11 18:48 | NUR ---
PATIENT REPOSITIONED IN BED AND THE BEDDING READJUSTED. NEW CHUX PLACED UNDERNEATH THE LEFT LOWER EXTREMITY. DRESSING AND CHUX WITH SEROSANGUINOUS DRAINAGE. PATIENT TOLERATED WELL. PATIENT STATED NO FURTHER NEEDS AT THIS TIME. CALL LIGHT AND PERSONAL BELONGINGS ARE WITHIN REACH.
--- NOTE | 2023-05-11 19:32 | NUR ---
REPORT RECEIVED FROM DAY SHIFT RN. PATIENT RESTING IN BED WATCHING TV. NO FURTHER NEEDS. CALL LIGHT IN REACH.
--- NOTE | 2023-05-11 20:36 | NUR ---
PATIENT RESTING IN BED. VS AND I&Os OBTAINED AND RECORDED. GARCIA CATH CARE PROVIDED PER PROTOCOL. IV FLUSHED AND WNL. SCHEDULED MEDICAITON ADMINISTERED, SEE MAR. PATIENT REFUSED BOWEL MEDICATION. ASSESSMENT COMPLETE. PATIENT REPORTS 8/10 PAIN IN LLE. PRN PAIN MEDICAITON PROVIDED, SEE MAR. LLE DRESSING HAS MINIMAL SATURATION. ADELA CLEAN AND DRY UNDER LLE. HEEL PROTECTORS IN PLACE. SCD ON RIGHT LEG. PATIENT HAS NO FURTHER NEEDS. CALL LIGHT IN REACH.
--- NOTE | 2023-05-11 22:49 | NUR ---
PATIENT RESTING IN BED ON BACK WITH EYES CLOSED. RESPIRATIONS EVEN AND UNLABORED. CALL LIGHT IN REACH.
--- NOTE | 2023-05-11 23:06 | NUR ---
SCHEDULED ABX INFUSING PER ORDER. NO FURTHER NEEDS. CALL LIGHT IN REACH.
[2023-05-12] VITALS (7 sets, daily range): BP systolic 124–157; BP diastolic 50–67
--- NOTE | 2023-05-12 00:25 | NUR ---
PATIENT RESTING IN BED. PATIENT REPORTS 7/10 PAIN IN LLE. PRN PAIN MEDICATION ADMINISTERED. PATIENT HAS NO FURTHER NEEDS. CALL LIGHT IN REACH.
--- NOTE | 2023-05-12 01:47 | NUR ---
PATIENT RESTING IN BED. VS AND I&Os OBTAINED AND RECORDED. ASSESSMENT COMPLETE. LLE DRESSING INTACT. DRESSING HAS MINIMAL SATURATION ON BACK OF LLE DRESSING. PATIENT REPORTS PAIN IS CURRENTLY "TOLERABLE". PATIENT HAS NO FURTHER NEEDS. CALL LIGHT IN REACH.
--- NOTE | 2023-05-12 02:28 | NUR ---
PATIENT REPOSITIONED IN BED WITH PILLOWS UNDER BILAT HIPS. WARM BLANKET PROVIDED. PATIENT HAS NO FURTHER NEEDS. CALL LIGHT IN REACH.
--- NOTE | 2023-05-12 02:47 | NUR ---
NEW BAG IV FLUID INFUSING PER ORDER. CALL LIGHT IN REACH.
--- NOTE | 2023-05-12 04:35 | NUR ---
ROUNDING ON PATIENT. PATIENT REPORTS 9/10 LLE PAIN. PRN PAIN MEDICAITON ADMINISTERED, SEE MAR. VS AND I&Os OBTIANED AND RECORDED. FRESH WATER PROVIDED. PATIENT HAS NO FURTHER NEEDS. CALL LIGHT IN REACH. TEDHOSE, HEEL PROTECTOR, AND SCD IN PLACE ON RLE.
--- NOTE | 2023-05-12 06:13 | NUR ---
PATIENT RESTING IN BED ON BACK WITH EYES CLOSED. RESPIRATIONS EVEN AND UNLBAORED. CALL LIGHT IN REACH.
--- NOTE | 2023-05-12 07:00 | NUR ---
recieved report from nurse. pt is in bed resting with even and unlabored breathing.no other cares needed at this time call light within reach
--- NOTE | 2023-05-12 07:29 | NUR ---
SPOKE WITH MD AND HE WANTS TO KEEP THE CURRENT ANCEF ORDER IS. ANCEF INFUSING PER ORDER. PATIENT HAS NO FURTHER NEEDS. CALL LIGHT IN REACH.
--- NOTE | 2023-05-12 10:30 | NUR ---
pt has been feeling nauseous and had 200ml of brown emesis. zofran tab given but threw up. compazine offered and but noticed leaking IV SITE. CALLED A NURSE TO REASSESS AND NEW IV NEEDED.
--- NOTE | 2023-05-12 11:36 | NUR ---
ROUNDS. PT EXHIBITED SITUATIONALLY APPROPRIATE RESPONSES; DECLINED OFFER OF PRAYER SHAWL. PROVIDED SUPPORTIVE PRESENCE; PROVIDED HOSPITALITY; PROVIDED PRAYER.
--- NOTE | 2023-05-12 12:22 | NUR ---
NURSE HAD DIFFICULTY WITH FINDING A VEIN FOR IV STICK. ULTRASOUND GUIDANCE NEEDED. NURSE IS CURRENTLY STILL IN ROOM WITH PT ATTEMPTING IV PLACEMENT
--- NOTE | 2023-05-12 13:42 | NUR ---
UR NOTE MCG TIBIA/FIBULA SHAFT FRACTURE, CLOSED OR OPEN REDUCTION (ISC) INPATIENT 05/09/23 VARIANCE GL DAY 3 05/11/23 VARIANCE GL DAY 3 05/12/23 VARIANCE GL DAY 3
--- NOTE | 2023-05-12 14:25 | NUR ---
pt was ready to be transferred from her chair to the bed. 3 person assist initiated. pt tolerated well. pt is currently resting in bed. requested warm blanket and ivan to drink with cup full of ice. no other cares needed at this time call light within reach
--- NOTE | 2023-05-12 15:41 | NUR ---
pt is resting and states that pain is under control with pain medications. no other cares needed or requested at this time. call light within reach
--- NOTE | 2023-05-12 18:25 | NUR ---
PT HAS BEEN RESTING MOST OF THE DAY DUE TO LACK OF SLEEP LAST NIGHT DUE TO PAIN. TREATED WITH ORAL PAIN MEDS AND PT SAID SHE HAD RELIEF AND WAS ABLE TO REST. PT HAS NOT BEEN EATING BUT HAS BEEN DRINKING FLUIDS. WILL CONTINUE TO MONITOR AND ENCOURAGE NUTRITION. PT AGREED TO DRINKING CHOCOLATE ENSURE. NO OTHER CARES ARE NEEDED OR REQUESTED AT THIS TIME CALL LIGHT WITHIN REACH
--- NOTE | 2023-05-12 19:35 | NUR ---
REPORT RECEIVED FROM DAY SHIFT RN. PATIENT SITTING UP IN BED. PATIENT STATES HER "PAIN IS UNDER CONTROL". THIS RN PROVIDED PATIENT WITH AN ENSURE. NO FURTHER NEEDS NOTED. CALL LIGHT IN REACH.
--- NOTE | 2023-05-12 20:27 | NUR ---
PATIENT RESTING IN BED. PATIENT UP ON RIGHT LEG WITH MINIMAL 2P SBA AND FWW TO CHANGE BE LINENS. PATIENT BACK TO BED. PATIENT MEÑO WELL. TEDHOSE, HEEL PROTECTORS AND SCD IN PLACE. VS AND I&Os OBTAINED AND RECORDED. ASSESSMENT COMPLETE. PATIENT REPORTS 3/10 PAIN. SCHEDULED AND PRN PAIN MEDICAITON ADMINISTERED, SEE MAR. PATIENT HAS NO FURTHER NEEDS. CALL LIGHT IN REACH. IVs FLUSHED AND WNL. GARCIA CATH CARE PROVIDED PER PROTOCOL.
--- NOTE | 2023-05-12 21:30 | NUR ---
IV PUMP ALARMING, DISTAL OCCLUSION NOTED. IV FLUIDS RESUMED AND INFUSING WNL. CALL LIGHT IN REACH, pt DENIES ADDITIONAL NEEDS OR COCNERNS WHEN ASKED.
--- NOTE | 2023-05-12 22:27 | NUR ---
PATIENT REPOSITIONED IN BED. PATIENT FLOATED WITH 2 PILLOWS UNDER BILAT HIPS. HEEL PROTECTORS, TEDHOSE, AND SCD IN PLACE. NO FURTHER NEEDS CALL LIGHT IN REACH.
--- NOTE | 2023-05-12 22:49 | NUR ---
ABX INFUSING PER ORDER, SEE MAR. PATIENT HAS NO FURTHER NEEDS. CALL LIGHT IN REACH.
[2023-05-13] VITALS (8 sets, daily range): BP systolic 93–144; BP diastolic 50–80
--- NOTE | 2023-05-13 00:05 | NUR ---
PRN PAIN MEDICATION ADMINSITERED PER PATIENT REQUEST. NO FURTHER NEEDS. CALL LIGHT IN REACH.
--- NOTE | 2023-05-13 00:53 | NUR ---
INFORMED BY PRIMARY RN pt UPSET REGARDING IV ALARMING, THIS RN IN ROOM AND PROVIDED THERAPEUTIC COMMUNICATION. IV SITE WNL, BRISK BLOOD RETURN NOTED AND THIS RN WRAPPED A WASH CLOTH IN CROOK OF ARM AND SECURED WITH COBAN TO PREVENT IV PUMP FROM ALARMING, pt EDUCATED AND AGREES TO POC pt IS NPO FOR AM DRESSING CHANGE. IV FLUDIS INFUSING DIRECTED, NO ALARMING NOTED-WILL CONTINEU TO MONITOR. CALL LIGHT IN REACH.
--- NOTE | 2023-05-13 00:59 | NUR ---
ROUNDED ON pt, NO ALAMRMING NOTED FROM IV PUMP. pt APPRECIATIVE OF CARES, CALL LIGHT IN REACH.
--- NOTE | 2023-05-13 02:30 | NUR ---
PATIENT REFUSING IV FLUID. PATIENT EDUCATED ON IV FLUID AND HYDRATION. PATIENT STILL REFUSES. PATIENT SALINE LOCKED AT THIS TIME.
--- NOTE | 2023-05-13 02:33 | NUR ---
PATIENT RESTING IN BED ON BACK WITH EYES CLOSED. RESPIRATIONS EVEN AND UNLABORED. CALL LIGHT IN REACH.
--- NOTE | 2023-05-13 02:49 | NUR ---
CALL LIGHT ANSWERED. PATIENT REPOSITIONED IN BED. NO FURTHER NEEDS. CALL LIGHT IN REACH.
--- NOTE | 2023-05-13 04:32 | NUR ---
PATIENT RESTING IN BED WITH EYES CLOSED. RESPIRATIONS EVEN AND UNLABORED. CALL LIGHT IN REACH.
--- NOTE | 2023-05-13 05:15 | NUR ---
PATIENT RESTING IN BED. VS AND I&Os OBTAINED AND RECORDED. ASSESSMENT COMPLETE. PULSES PRESENT IN BLE. PATIENT REPORTS 6/10 LLE PAIN. PRN PAIN MEDICATION ADMINISTERED, SEE MAR. IV FLUID INFUSING PER ORDER. PATIENT HAS NO FURTHER NEEDS. CALL LIGHT IN REACH.
--- NOTE | 2023-05-13 06:39 | NUR ---
NEW BAG IV FLUID INFUSING PER ORDER. ABX INFUSING PER ORDER, SEE MAR. NO FURTHER NEEDS. CALL LIGHT IN REACH.
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
--- NOTE | 2023-05-13 08:24 | NUR ---
recieved report from nurse at 0700. pt was awake A+O. PT IS GETTING READY FOR HER DEBRIDEMENT. NO OTHER CARES NEEDED OR REQUESTED AT THIS TIME. CALL LIGHT WITHIN REACH
--- NOTE | 2023-05-13 10:14 | NUR ---
05/13/23 Garret4 Lali Dunaway PT TO PACU AWAKE DENIES PAIN AND NAUSEA, DR DUNAWAY NOTIFIES OF LOW GRADE TEMP.
--- NOTE | 2023-05-13 10:26 | NUR ---
Patient has been in house x 7 days. She has been on a Regular diet except when NPO for surgeries. Appetite varies. She didn't eat any food yesterday due to being NPO for breakfast and being tired from not sleeping the night before. Did drink a chocolate Ensure in the evening. Will check with patient once back from the OR to see if she would like Ensure with certain meals to provide more calories and protein.
--- NOTE | 2023-05-13 10:45 | NUR ---
PT RETURNED FROM OR BY NURSE PRATT. PT IS CURRENTLY IN BED RESTING WITH NO PAIN AND WATCHING TELEVISION. VITALS DONE. NO OTHER CARES NEEDED OR ABNORMAL FINDINGS CALL LIGHT WITHIN REACH
--- NOTE | 2023-05-13 11:22 | NUR ---
UR NOTE MCG TIBIA/FIBULA SHAFT FRACTURE, CLOSED OR OPEN REDUCTION (ISC) 05/13/23 VARIANCE GL DAY 3
--- NOTE | 2023-05-13 11:27 | NUR ---
ROUNDS. PT SHARED RECENT INFORMATION THAT AMPUTATION MIGHT BE NECESSARY; STATED ANXIETY AROUND THAT POSSIBILIYT. PROVIDED SUPPORTIVE PRESENCE; LISTENED EMPATHETICALLY; EXPLORED COPING MECHANISMS; PROVIDED PRAYER. PT EXPRESSED HOPE; EXPRESSED GRATITUDE.
--- NOTE | 2023-05-13 13:15 | NUR ---
PT IS REQUESTING PAIN MEDS FOR PAIN LEVEL OF 5.
--- NOTE | 2023-05-13 13:24 | NUR ---
PT TOLERATING FLUIDS WILL GO TO CLEAR LIQUIDS
--- NOTE | 2023-05-13 16:45 | NUR ---
pt IV IS CONSTANTLY OCCLUDING. CALLED SUPERVSOR TO SEE IF HE CAN DO AN ULTRASOUND GUIDED IV. REGISTERED PUBLIC [facility]ALTH NURSE STATES TO WAIT FOR NIGHTSHIFT BECAUSE THERE IS SOMEONE WHO IS CERTIFIED. PT IV HAS A TOWEL INBETWEEN ARM AND COBAN WAS USED TO HOLD IT IN PLACE. WILL WAIT FOR NIGHTSHIFT TO SEE IF THEY CAN PUT IN A NEW IV. PT TOLERATING ENSURE BUT NO SOILD FOOD STILL. NO OTHER CARES NEEDED OR REQUESTED AT THIS TIME. PT FOOT IS HAVING LESS DRAINAGE THAN PREVIOUS DAYS EVEN AFTER HER DEBRIDEMENT. CALL LIGHT WITHIN REACH
--- NOTE | 2023-05-13 19:26 | NUR ---
REPORT RECEIVED FROM DAY SHIFT RN. PATIENT RESTING IN BED TALKING ON THE PHONE. PATIENT REPORTS NO CURRENT NEEDS. CALL LIGHT IN REACH.
--- NOTE | 2023-05-13 21:15 | NUR ---
PATIENT RESTING IN BED. PATIENT REPOSTIONED IN BED AND FLOATED WITH PILLOWS UNDER BILAT HIPS. VS AND I&Os OBTAINED AND RECORDED. SCHEDULED MEDICATIONS ADMINISTERED. ASSESSMENT COMEPLETE. PATIENT REPORTS 9/10 PAIN IN LLE. PRN PAIN MEDICAITON ADMINISTERED, SEE MAR. PATIENT EDUCATED ABOUT NIO BOWEL MEDS. PATIENT VERBALIZED UNDERSTANDING AND REFUSED. PATIENT IV FLUSHED AND WNL. GARCIA CATH CARE PROVIDED PER PROTOCOL. FRESH ICE WATER AND SPRITE PROVIDED. PATIENT HAS NO FURTHER NEEDS. CALL LIGHT IN REACH. TEDHOSE, SCD AND HEEL PROTECTORS IN PLACE.
--- NOTE | 2023-05-13 22:55 | NUR ---
PATIENT RESTING IN BED ON BACK WITH EYES CLOSED. RESPIRATIONS EVEN AND UNLABORED. CALL LIGHT IN REACH.
--- NOTE | 2023-05-13 23:39 | NUR ---
ABX ADMINISTERED PER ORDER. PATIENT RESTING IN BED WITH EYES CLOSED. O2 SAT 94% ON RA. CALL LIGHT IN REACH.
[2023-05-14] VITALS (7 sets, daily range): BP systolic 115–144; BP diastolic 45–74
--- NOTE | 2023-05-14 01:10 | NUR ---
PATIENT RESTING IN BED. AWAKENS EASILY. VS AND I&Os OBTAINED AND RECORDED. ASSESSMENT COMPLETE. PATIENT REPORTS 7/10 PAIN IN LLE. PRN PAIN MEDICATION ADMINISTERED, SEE MAR. STRONG PULSE PRESENT IN LLE. PATIENT REPOSTITIONED IN BED. PATIENT HAS NO FURTHER NEEDS. CALL LIGHT IN REACH. RIGHT AC IV LEAKING. IV DCd WNL.
--- NOTE | 2023-05-14 03:22 | NUR ---
PATIENT RESTING IN BED ON BACK WITH EYES CLOSED. O2 SAT 95% ON RA. SCD, TEDHOSE, AND HEEL PROTECTORS IN PLACE. CALL LIGHT IN REACH.
--- NOTE | 2023-05-14 05:22 | NUR ---
PATIENT RESTING IN BED. VS AND I&Os OBTAINED AND RECORED. NEW BAG IV FLUID INFUSING PER ORDER. PATIENT HAS NO FURTHER NEEDS. CALL LIGHT IN REACH.
--- NOTE | 2023-05-14 06:59 | NUR ---
SCHEDULE MED PROVIDED. PT RESTING IN BED, EYES CLOSED. RR EVEN, UNLABORED. CALL LIGHT IN REACH.
--- NOTE | 2023-05-14 09:31 | NUR ---
RECIEVED PT REPORT FROM NURSE AT 0718. PT WAS RESTING WITH EYES CLOSED WITH EVEN AND UNLABHORED BREATHING NOTED. CURRENTLY P[T JUST RECIEVED A POTION CHANGE AND BOOST IN BED WITH 3 PERSON ASSIST. PT STILL REFUSING SOLID FOODS AND ONLY INTERESTED IN DRINKING FLUIDS. PT IS DRINKING ENSURE A SUPPLEMENT. NO ABNORMAL FINDINGS OUTSIDE OF LAST ASSESSMENT OF WOUND AND BODY. PT IS STATING THAT SHES NAUSEOUS. MED WILL BE GIVEN. NO OTHER CARES NEEDED OR REQUESTED AT THIS TIME. CALL LIGHT WITHIN REACH
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
--- NOTE | 2023-05-14 12:01 | NUR ---
PT HAS NO PAIN. CURRENTLY AWAKE AND WATCHING TELEVISION. NO SIGNS OF DISTRESS OR ABNORNAL DRAINAGE ON FOOT. NO OTHER CARES NEEDED AT THIS TIME. CALL LIGHT WITHIN REACH
--- NOTE | 2023-05-14 14:02 | NUR ---
PT VISITED AND PT STATES THAT NOW THAT SHE HAS HER PURSE SHE WILL ORDER A PIZZA WHICH WILL BE THE FIRST TIME IN MANY DAYS THAT SHE HASN'T EATEN SOLID FOOD. NO OTHER CARES OR REQUESTS AT THIS TIME. PT STATES PAIN IS UNDER CONTROL. CALL LIGHT WITHIN REACH
--- NOTE | 2023-05-14 16:30 | NUR ---
PT ORDERED PIZZA AND ATE TWO SLICES. SHE TOLERATED IT WELL. NO SIGN OF NAUSEA.
--- NOTE | 2023-05-14 21:39 | NUR ---
Pt awake, alert and oriented. helped with repositioning. On room air, lungs clear bilat, HEA, no bm since 05/05, stated passing gas. "My stomach is rumbling, I may have a bm soon". attends placed. red gluteal area noted and R mid buttocks, not open. R leg scds and blue heel protectors in place. L leg Kerlix dressing with serosanguineous dresing underneath and at External Fixator insertion sites. red felecia noted 1 inch above dressing, black eschar moist w ss drainage noted. Medicated with scheduled Tylenol and Oxycodone 10mg po per 11/08 pain. IVF infusing
--- NOTE | 2023-05-15 02:49 | NUR ---
RESTING, EYES CLOSED, NO S/S DISTRESS. L LEG LE EXTERNAL FIXATOR IN PLACE. KERLIX DRESSING WITH SS DRAINAGE. REDNESS AND DARK ESCHAR TISSUE NOTED BACK LEG COVERED WITH KERLIX DRESSING, DENIES C/O PAIN , IVF INFUSING
--- NOTE | 2023-05-15 04:27 | NUR ---
resting, no s/sx distress. L LE external fixator in place. dressing with new and old drainage
[2023-05-15 04:59] VITALS: BP 128/57
--- NOTE | 2023-05-15 06:16 | NUR ---
Slept, on room air, no respiratory distress. IVF infusing w/o problems, no c/o adverse reaction to abx. f/c patent draining QS clear yellow urine. blue heel protectors-scds R foot. L foot mediheel protectors in place. kerliz dressing L LE with old and new drainage from insertion site and skin flaps. red reas above dressing below knee area pink, 1+ edema, dark eschar tissue moist w ss drainage Inner lateral site. wigles toes, toes delayed cap refill and pale skin noted. able to feel corectly when touched when assessing from above knee to toes. Pleasant and cooperative
--- NOTE | 2023-05-15 06:55 | NUR ---
used call light, c/o 8/10 L leg pain, no changes from early assessment, external fixator in place. pt medicated with 10mg Oxycodone
--- NOTE | 2023-05-15 07:47 | NUR ---
RECIEVED PT REPORT FROM NURSE AT 0715. PT WAS AWAKE WATCHING TELEVISION. WHEN ASKED IF SHE NEEDED ANYTHING AYT THE MOMENT SHE STATED NO. NO OTHER CARES NEEDED AT THIS TIME CALL LIGHT WITHIN REACH
[2023-05-15 08:56] VITALS: BP 134/58
--- NOTE | 2023-05-15 13:30 | NUR ---
PT GOT IV REMOVED DUE TO LEAKAGE. PT HAD CARES DONE ON BOTTOM BARRIER CREAM AND NEW DEPEND APPLIED. NEW CHUCKS PLACED UNDERNEATH LEFT LEG TO CATCH DRAINAGE.
[2023-05-15 13:31] VITALS: BP 123/62
--- NOTE | 2023-05-15 14:26 | NUR ---
called steel post installer supervisor to see if pt can get an ultra sounded guided iv start.
--- NOTE | 2023-05-15 16:14 | NUR ---
pt is in bed resting watching television with in the room. no concerns. no requests or cares needed at this time. call light within reach
[2023-05-15 18:44] VITALS: BP 136/56
[2023-05-15 21:41] VITALS: BP 140/68
--- NOTE | 2023-05-15 21:51 | NUR ---
forgetful at times, alert and oriented at this time. aware of surroundigs and situation. On room air, no distress, clear lungs, abd soft, nondistended, LBM 05/05. takes 1 Senna tab , Continues to decline more bowel care. f/c patent, draining clear yellow urine, care done. attends in place, stated passing gas no bm. L leg external fixator in place, Kerlix dressing with old and small amount of serosanguineous drainage. redness and induration noted around top of dressing knee area. wigles toes, warm to touch, pale. able to correctly stated when touching. hell medi in place L leg. SCDS, blue heel protectors R leg. Aware of NPO after midnight for further assessment and debridement under anesthesia by Dr Dunaway in am. Medicated at this time with Oxycodone 10mg and scheduled Tylenol per /10 L leg pain. IVF infusing w/o problems. Pleasant and cooperative, turned and repositioned external fixators in place
--- NOTE | 2023-05-15 23:17 | NUR ---
RESTING, NO DISTRESS, AWAKENS EASILY, L LEG EXTERNAL FIXATOR IN PLACE, KERLIX DRESSING WITH OLD DRAINAGE. EDEMA,REDNESS AROUND LEG AND BLACK SCABBED AREAS,
[2023-05-16] VITALS (9 sets, daily range): BP systolic 116–144; BP diastolic 51–63
--- NOTE | 2023-05-16 00:48 | NUR ---
Resting, eyes closed, NPO for am procedure. IVF infusing. f/c patent. L foot no changes
--- NOTE | 2023-05-16 02:23 | NUR ---
pt incontinent of bm,barrier cream applied, skin care done attends in place. f/c care done. NPO for am procedure
--- NOTE | 2023-05-16 05:58 | NUR ---
PT HAS SLEPT THIS SHIFT. NPO SINCE MIDNIGHT FOR AM PROCEDURE. TOLERATED WELL, ON ROOM AIR. HAS BEEN MEDICATED X1 WITH SCHEDULED TYLENOL AND PRN OXYCODONE WITH GOOD PAIN RELIEF. HAS A SOFT BM. F/C PATENT. DRESSING L LEG WITH OLD AND FRESH SS DRAINAGE. EXTERNAL FIXATORS IN PLACE. PINK FIRM, AREA NOTED ABOVE DRESSING BELOW KNEE, BLACK COLORED AREAS NOTED UNDER DRESSING. PT STATED SHE CAN FEEL CORRECTLY DURING LEG ASSESSMENT. MEDIHEEL IN PLACE L LEG, BLUE HEEL PROTECTORS R FOOT, SCDS AND ADAN HOSE IN PLACE r LEG. HELPS WITH REPOSITIONING AND TURNING, IVF INFUSING
--- NOTE | 2023-05-16 08:34 | NUR ---
ADMIN MORNING CARDIAC MEDS AND OXYCODONE 10MG PO WITH A SMALL SIP OF WATER. PATIENT REPORTS 7/10 LLE PAIN. PATIENT IS AWARE THAT SHE WILL BE GOING TO [facility] AT SOME POINT TODAY. PT REMAINS NPO. BED ALARM INTACT.
--- NOTE | 2023-05-16 10:38 | NUR ---
Patient left the unit with surgery dept nurse.
--- NOTE | 2023-05-16 12:37 | NUR ---
PATIENT BACK TO THE MEDICAL FLOOR, ALERT AND ORIENTED X4 AT THIS TIME. PATIENT REPORTS 7/10 LLE PAIN. DRESSING CDI TO LLE. IV FLUIDS RESTARTED PER PROVIDER ORDER. PATIENT PROVIDED WITH A PROTEIN SHAKE. EXTERNAL FIXATOR TO LLE REMAINS INTACT. BED ALARM IN PLACE.
--- NOTE | 2023-05-16 12:43 | NUR ---
05/16/23 1243 Isabella Estrada 1200 PT ARRIVED IN PACU WIDE AWAKE WITH NO C/O'S. 1215 PT VISITING WITH STAFF. EXTERNAL FIXATOR ON LLE INTACT. 1224 TO ROOM 122 VIA STRETCHER. REPORT GIVEN TO RN. BED PLUGGED IN.
--- NOTE | 2023-05-16 12:57 | NUR ---
ADMIN OXYCODONE 10MG PO FOR REPORTS OF 7/10 LLE PAIN.
--- NOTE | 2023-05-16 13:43 | NUR ---
ROUNDS. PT RECEIVING NURSING CARE. DID NOT INTERRUPT. PROVIDED SILENT PRAYER.
--- NOTE | 2023-05-16 13:50 | NUR ---
Patient awake, alert and oriented x3. Patient reports improved pain in LLE, 6/10-tolerable per her report. Iv patent, fluids infusing per provider order. LLE dressing unchanged, fixater intact. Call light within reach of pt.
--- NOTE | 2023-05-16 13:56 | NUR ---
Patient alert, sitting up in bed. States she is still planning on going to [facility] at time of DC. Discussed her upcoming surgery. No questions at this time. Will continue to send updates to [facility] as patient progresses
--- NOTE | 2023-05-16 14:16 | NUR ---
ROUNDS. FAMILY AT BEDSIDE. PROVIDED SUPPORTIVE PRESENCE; REFRAMED EXPERIENCE; PROVIDED ASSURANCE OF ONGOING PRAYERS.
--- NOTE | 2023-05-16 14:26 | NUR ---
UR NOTE MCG TIBIA/FIBULA SHAFT FRACTURE, CLOSED OR OPEN REDUCTION (ISC) INPATIENT 05/16/23 VARIANCE GL DAY 3
--- NOTE | 2023-05-16 17:33 | NUR ---
Admin oxycodone 10mg po for reports of 7/10 LLE pain. Vital signs remains stable, afebrile. Dinner to patient. LLE dressing remains CDI.
--- NOTE | 2023-05-16 21:45 | NUR ---
Pt awake, c/o 7/10 L leg pain. external fixator in place. clean Kerlix dressing with shadowing noted mid leg and under not seeping through yet. able to correctly identify when touched during assessment, wigles toes, warm to touch, pale, good pulses, trace edema to top of foot. below knee back side, slight enduration present and pinkish colored skin, non tender. Mediheel in place, blue heel protectors in place R foot, scds, koki hose in place R foot. IVF LAC patent. blue foam protector applied to R elbow due to slight redness. procedure explained pt cooperative, CPOX post op in place, no c/o sob . on waffle mattress. repositioned and turned to her comofrt. tolerated well. f/c patent draining yellow urine QS. tolerating liquids and diet, well, no c/o sob. On room air, IS and acapella at bedside
[2023-05-17] VITALS (8 sets, daily range): BP systolic 121–137; BP diastolic 49–55
--- NOTE | 2023-05-17 00:46 | NUR ---
POST OP CPOX IN PLACE, ON ROOM AIR, NO DISTRESS, RESTING, EYES CLOSED. L LEG DRESSING WITH SOME SHADOWING TOP, SMALL AMOUNT ON BACK. EXTERNAL FIXATORS IN PLACE. F/C PATENT, IVF INFUSING
--- NOTE | 2023-05-17 04:44 | NUR ---
RESTING, EYES CLOSED, AWAKENS EASILY. IVF INFUSING W/O PROBLEMS. LEFT LEG DRESSING WITH SHADOWING TOP AND SEROSANGUINEOUS DRAINAGE BACK OF DRESSING. SCDS, ADAN HOSE AND HEEL PROTECTORS IN PLACE. AND ON R ELBOW
[2023-05-17 05:46] LABS: BASOPHILS 0.8 % (0-2); EOSINOPHILS 4.4 % (0-6); HEMATOCRIT 26.4 % (35.0-50.0); HEMOGLOBIN 8.7 g/dL (12.0-18.0); LYMPHOCYTES 15.2 % (24-44); MCH 29.8 (27-36); MCV 90.2 fl (81-99); MONOCYTES 9.7 % (0-12); NEUTROPHILS 69.9 % (39-80); PLATELET COUNT 459 K/uL (140-440); RBC 2.92 M/ul (4.3-5.7); RDW 14.8 (10.5-15.0)
[2023-05-17 05:59] LABS: ALBUMIN 1.5 g/dL (3.4-5.0); ALBUMIN/GLOBULIN RATIO 0.33 (1.1-2.4); ANION GAP 13.2 (7-21); BILIRUBIN, TOTAL 0.4 ng/dL (0.2-1.0); BUN/CREATININE RATIO 15.85 (6.0-28.6); CALCIUM 8.5 mg/dL (8.5-10.1); CREATININE, SERUM 0.82 mg/dL (0.55-1.02); POTASSIUM 4.2 mmol/L (3.5-5.1); PROTEIN, TOTAL 6.1 g/dL (6.4-8.2)
--- NOTE | 2023-05-17 06:20 | NUR ---
Pt has been awake off and on this shift. Was medicated x1 with scheduled Tylenol and prn Oxycodone, effective. IVF infusing. f/c patent. L leg external fixator in place, kerliz dressing with some shadowing noted top and back of dressing, good cms to L leg. scds, heel protectors and koki hose to R leg, mediheel L leg. blue foam to R elbow, bruising L side of body, r hand and arm improving. Pleasant and cooperative, helps with turning and repositioning
--- NOTE | 2023-05-17 07:15 | NUR ---
VERBAL BEDSIDE REPORT RECEIVED FROM AHMET MATTHEW. PT AWAKE AND ALERT. DRESSING TO LLE C/D/I. CALL LIGHT IN REACH, NO REQUESTS AT THIS TIME.
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
--- NOTE | 2023-05-17 08:22 | NUR ---
PT NPO FOR ULTRASOUND. ULTRASOUND IMAGING STAFF IN ROOM PERFORMING PROCEDURE.
--- NOTE | 2023-05-17 09:02 | NUR ---
PT REFUSES BREAKFAST. REPORTS NAUSEA. REQUEST MEDICATION.
--- NOTE | 2023-05-17 09:20 | NUR ---
PT RECEIVES MEDICATION FOR NAUSEA, SEE EMAR.
--- NOTE | 2023-05-17 09:41 | NUR ---
PT STATES NAUSEA HAS IMPROVED. STATES SHE THINKS SHE CAN TAKE HER PO MEDICATIONS.
--- NOTE | 2023-05-17 12:02 | NUR ---
ROUNDS. PT EXPRESSED ACCEPTANCE OF PENDING AMPUTATION; STRONG DETERMINATION. PROVIDED HOSPITALITY; PROVIDED ANTICIPATORY GUIDANCE; PROVIDED SUPPORTIVE PRESENCE; PROVIDED SILENT PRAYER.
--- NOTE | 2023-05-17 14:00 | NUR ---
Spoke with Darnell, her spouse, and Son. The plan remains for pt to dc to [place], when cleared medically, after her amputation. Florin has many questions and we reviewed payment from medicare, secondary insurance, and . We also discussed if pt maxes out her days in a SNF the possibility of an HALF-WAY. Darnell has a list of facilities from last week, but Florin would like one also. Gave the list to the son at [facility] request with a brochure from [employer] that help with cg. Darnell cont. to plan on dc to [place].
--- NOTE | 2023-05-17 15:41 | NUR ---
OXYCODONE RECEIVED FOR PAIN WITH OT/PT REPORTED BY PT, SEE EMAR.
--- NOTE | 2023-05-17 18:12 | NUR ---
PT REPOSITIONED IN BED, RIGHT SIDE FLOATED WITH PILLOWS. IV CONTINUES TO INFUSE, NO LEAKING, REDNESS OR SWELLING NOTED. SMALL AMOUNT OF SHADOWING NOTED UNDER LLE DRESSING ON THE LATERAL ASPECT OF THE KNEE. CALL LIGHT IN REACH. NO REQUESTS AT THIS TIME.
--- NOTE | 2023-05-17 21:02 | NUR ---
Pt awake, on room air, IVF infusing. L leg dressiing with shadowing in place. external fixator in place. medicated per 11/08 l leg pain, oxycodone 5mg po given. med changes done by Dr Parisi pt aware of reasing. stated understanding, coop with assessment, good cms L leg, warm to touch, wigles toes and aware of exact spot being touched. mediheel in place, scds tedhose and blue heel protectors in place
--- NOTE | 2023-05-17 22:58 | NUR ---
RESTING, EYES CLOSED, ON ROOM AIR, NO DISTRESS, IVF INFUSING. EXTERNAL FIZATOR L LEG, KERLIX DRESSING DROM ANKLES TO BELOW KNEE AREA WITH OLD AND FRESH SHADOWING AND SS DRAINAGE DISTAL BELOW KNEE AREA. FOOT CRADDLE IN PLACE WAS MOVED AND REPOSITIONED IN BED, COOPERATIVE. F/C PATENT
[2023-05-18] VITALS (8 sets, daily range): BP systolic 107–144; BP diastolic 42–59
--- NOTE | 2023-05-18 00:55 | NUR ---
THIS RN IN TO RESUME CARE OF PATIENT. PATIENT RESTING IN BED. PATIENT NPO AT THIS TIME. PATIENT REPORTS NO CURRENT NEEDS. CALL LIGHT IN REACH.
--- NOTE | 2023-05-18 01:58 | NUR ---
PATIENT RESTING IN BED ON BACK WITH EYES CLOSED. RESPIRATIONS EVEN AND UNLABORED. CALL LIGHT IN REACH.
--- NOTE | 2023-05-18 03:19 | NUR ---
PATIENT RESTING IN BED. NEW BAG IV FLUID INFUSING PER ORDER. NO FURTHER NEEDS. CALL LIGHT IN REACH.
[2023-05-18 05:14] LABS: BASOPHILS 0.5 % (0-2); EOSINOPHILS 2.9 % (0-6); HEMOGLOBIN 9.1 g/dL (12.0-18.0); LYMPHOCYTES 10.9 % (24-44); MCH 29.5 (27-36); MCHC 32.5 g/dl (30-36); MCV 90.7 fl (81-99); MONOCYTES 9.1 % (0-12); NEUTROPHILS 76.6 % (39-80); PLATELET COUNT 541 K/uL (140-440); RBC 3.09 M/ul (4.3-5.7); RDW 14.6 (10.5-15.0)
[2023-05-18 05:27] LABS: INR 1.13 (0.80-1.30); PROTIME 14.1 Sec (11.2-14.2)
--- NOTE | 2023-05-18 05:35 | NUR ---
PATIENT RESTING IN BED. VS AND I&Os OBTAINED AND RECORDED. PRE-PROCEDURE WIPE DOWN COMPLETE. NEW LINENS AND GOWN COMPLETE. GARCIA CATH CARE PROVIDED. NEW BREIF IN PLACE. NEW SOCK AND TEDHOSE IN PLACE. PRN PAIN MEDICATION AND ANXIETY MEDICATION ADMINISTERED PER PATIENT REQUEST WITH SMALL SIP WATER. OTHERWISE NPO. SCHEDULED ABX INFUSING PER ORDER, SEE MAR. ASSESSMENT COMPLETE. MINIMAL SHADOWING ON LLE DRESSING. NO FURTHER NEEDS. CALL LIGHT IN REACH.
[2023-05-18 05:38] LABS: ALBUMIN 1.7 g/dL (3.4-5.0); ALBUMIN/GLOBULIN RATIO 0.33 (1.1-2.4); ANION GAP 12.2 (7-21); BILIRUBIN, DIRECT 0.2 mg/dL (0.0-0.2); BILIRUBIN, INDIRECT 0.2 (0.1-0.7); BILIRUBIN, TOTAL 0.4 ng/dL (0.2-1.0); CALCIUM 8.9 mg/dL (8.5-10.1); POTASSIUM 4.2 mmol/L (3.5-5.1); PROTEIN, TOTAL 6.8 g/dL (6.4-8.2); TSH, 3RD GENERATION 0.99 uIU/mL (0.358-3.740)
[2023-05-18 05:47] LABS: BUN/CREATININE RATIO 15.9 (6.0-28.6); CREATININE, SERUM 0.88 mg/dL (0.55-1.02)
--- NOTE | 2023-05-18 06:11 | NUR ---
NOTIFIED OF [facility] VALUE. VERIFIED WITH MD ABX ORDERS. TELEPHONE ORDER TO DC ANCEF VERIFIED USING REPEAT BACK METHOD.
--- NOTE | 2023-05-18 07:09 | NUR ---
ROUNDS. PT IN FOR PROCEDURE. PROVIDED PRAYER.
--- NOTE | 2023-05-18 07:27 | NUR ---
VERBAL REPORT RECEIVED FROM AHMET STARKS. PT CURRENTLY OFF UNIT IN SURGERY.
--- NOTE | 2023-05-18 08:00 | NUR ---
NOtified by Dr. Dunaway pt will need a wc. RX completed. Chart copied and faxed with RX to [facility].
--- NOTE | 2023-05-18 09:06 | NUR ---
05/18/23 0906 Lali Dunaway 0842 PT TO PACU WITH ORAL AIRWAY IN PLACE. PT MOANING, FITS ARE CLENCHED TIGHTLY. PT NODE HER HEAD "YES" AND MOANS WHEN ASKED IF SHE IS HAVING PAIN. YONNY PANDEY PT RE BLOCK SIATIC AREA.
--- NOTE | 2023-05-18 09:50 | NUR ---
PT RETURNS FROM SURGERY. MOVED TO ROOM 120 DUE TO CONFUSION AND ATTEMPTING TO GET OUT OF BED SHE EMERGES FROM ANESTHESIA. VSS. ON 05/03 LPM OF O2 VIA NC, O2 SATS 95%. CONTINUOUS PULSE OXIMETER IN PLACE. SCD AND OFF LOADING BOOT IN PLACE TO RLE. DRESSING TO LEFT RESIDUAL LIMB OF AKA IS CLEAN DRY AND INTACT. PT ROUSES TO VOICE AND SPONTANEOUSLY. WAKES UP AND ATTEMPTS TO GET OUT OF BED. PT IS ORIENTED TO SITUATION EACH TIME SHE ROUSES, PT VERBALIZES UNDERSTANDING EACH TIME BUT CONTINUES TO REQUIRE RE-ORIENTATION EAT TIME SHE ROUSES.
--- NOTE | 2023-05-18 10:32 | NUR ---
PT DISLODGES DRESSING OVER LEFT RESIDUAL LIMD. DRESSING RE-APPLIED WITH ASSIST FROM YVETTE Mcallister RN. NOTIFIED VIA PHONE PER AHMET CRAWFORD. PT CONTINUES TO WAKE UP CONFUSED.
--- NOTE | 2023-05-18 10:45 | NUR ---
Spoke with Darnell. She is very sleepy. Denies c/o. Spoke with Dr. Dunaway this am. He plans for possible dc of this pt on Tuesday if all goes well. I texted GIGI at [facility] and he states they cont. to plan on taking this pt. We will need to check with them when the dc time is closer.
--- NOTE | 2023-05-18 10:47 | NUR ---
ROUNDS. PT BACK FROM SURGERY. VERY GROGGY. PROVIDED SILENT PRAYER.
--- NOTE | 2023-05-18 11:54 | NUR ---
UR NOTE MCG TIBIA/FIBULA SHAFT FRACTURE, CLOSED OR OPEN REDUCTION (ISC) INPATIENT 05/17/23 VARIANCE GL DAY 3
--- NOTE | 2023-05-18 18:36 | NUR ---
PT NOW AAOX4. DENIES PAIN AT THIS TIME. SCD IN PLACE TO RLE, CONTINUOUS PULSE OXIMETER IN PLACE, OFF LOADING BOOT ON RLE. DRESSING TO LEFT RESIDUAL LIMB C/D/I. O2 VIA NC, TITRATED DOWN TO 1LPM, PT SATS 96%. IV IN LAC INFUSES LR, DRESSING C/D/I, NO LEAKING, REDNESS OR SWELLING NOTED. CALL LIGHT IN REACH, BED ALARM ON. IS AT BEDSIDE, EDUCATION ON USE PROVIDED, REQUIRES REINFORCEMENT. NO REQUESTS AT THIS TIME.
--- NOTE | 2023-05-18 19:43 | NUR ---
REPORT RECEIVED FROM DAY SHIFT RN. PATIENT RESTING IN BED. PATIENT DENIES THE NEED FOR PAIN MEDICATION AT THIS TIME. PATIENT HAS NO FURTHER NEEDS. CALL LIGHT IN REACH.
--- NOTE | 2023-05-18 22:01 | NUR ---
PATIENT RESTING IN BED WITH EYES CLOSED. PATIENT REPOSITIONED IN BED. NEW SLIDE SHEET, ADELA AND BREIF IN PLACE. BED ALARM ON FOR SAFETY. VS AND I&Os OBTAINED AND RECORDED. LEFT ARM IV LEAKING AND REMOVED WNL. IV FLUID AND SCHEDULED ABX INFUSING THROUGH R AC WNL. ASSESSMENT COMEPLETE. L STUMP DRESSING C/D/I. PATIENT REPORTS 7/10 L STUMP PAIN. PRN PAIN MEDICATION ADMINISTERED. GARCIA CATH CARE PROVIDED PER PROTOCOL. SCHEDULED MEDICATIONS ADMINISTERED. FRESH WATER PROVIDED. ADAN HOSE, HEEL PROTECTOR, AND SCDs IN PLACE. PATIENT REPORTS NO FURTHER NEEDS. CALL LIGHT IN REACH.
--- NOTE | 2023-05-18 22:44 | NUR ---
PATIENT RESTING IN BED ON BACK WITH EYES CLOSED. RESPIRATIONS EVEN AND UNLABORED. O2 SAT 93% ON 1L NC. CALL LIGHT IN REACH.
[2023-05-19] VITALS (7 sets, daily range): BP systolic 126–164; BP diastolic 57–63
--- NOTE | 2023-05-19 00:34 | NUR ---
NEW BAG IV FLUID INFUSING PER ORDER. PATIENT REPORTS 7/10 PAIN IN LLE. PRN PAIN MEDICATION ADMINISTERED PER PATIENT REQUEST. NO FURTHER NEEDS. CALL LIGHT IN REACH.
--- NOTE | 2023-05-19 01:53 | NUR ---
VS AND I&Os OBTAINED AND RECORDED. FRESH WATER AND SPRITE PROVIDED. ASSESSMENT COMPLETE. LLE DRESSING C/D/I. PATIENT REPORTS NO PAIN AT THIS TIME. PATIENT HAS NO FURTHER NEEDS. CALL LIGHT IN REACH.
--- NOTE | 2023-05-19 04:06 | NUR ---
PATIENT RESTING IN BED. PATIENT REPORTS 8/10 LLE PAIN. PRN PAIN MEDICATION ADMINISTERED, SEE MAR. PATIENT HAS NO FURTHER NEEDS. CALL LIGHT IN REACH.
[2023-05-19 05:28] LABS: BASOPHILS 0.3 % (0-2); EOSINOPHILS 0.1 % (0-6); HEMOGLOBIN 7.5 g/dL (12.0-18.0); LYMPHOCYTES 7.2 % (24-44); MCH 29.5 (27-36); MCHC 32.7 g/dl (30-36); MCV 90.1 fl (81-99); MONOCYTES 8.9 % (0-12); NEUTROPHILS 83.5 % (39-80); PLATELET COUNT 490 K/uL (140-440); RBC 2.55 M/ul (4.3-5.7); RDW 14.4 (10.5-15.0)
--- NOTE | 2023-05-19 05:35 | NUR ---
PATIENT RESTING IN BED. VS AND I&Os OBTAINED AND RECORDED. SCHEDULED ABX INFUSING PER ORDER. FRESH WATER PROVIDED. PATIENT HAS NO FURTHER NEEDS. CALL LIGHT IN REACH.
[2023-05-19 05:47] LABS: ALBUMIN 1.5 g/dL (3.4-5.0); ALBUMIN/GLOBULIN RATIO 0.33 (1.1-2.4); ANION GAP 13.5 (7-21); BILIRUBIN, TOTAL 0.4 ng/dL (0.2-1.0); BUN/CREATININE RATIO 22.98 (6.0-28.6); CALCIUM 8.1 mg/dL (8.5-10.1); CREATININE, SERUM 0.87 mg/dL (0.55-1.02); POTASSIUM 4.5 mmol/L (3.5-5.1); PROTEIN, TOTAL 6.1 g/dL (6.4-8.2)
--- NOTE | 2023-05-19 07:08 | NUR ---
c/o 12/09 ; stump pain, medicated with dilaudid 0.25 mg iv
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
--- NOTE | 2023-05-19 09:35 | NUR ---
HOB ELEVATED, ALERT AND ORIENTED, C/O MILD L STUMP PAIN. L STUMP COVERED WITH FACUNDO WRAP, PT TOUCHING IT AND LIFTING IT FREQUENTLY. TEACHING DONE, SEMI RECEPTIVE. ON ROOM AIR, CLEAR LUNGS, ABD SOFT, ISABELLE, F/C PATENT DRAINING YELLOW URINE. R LEG SCDS, ADAN HOSE AND HEEL PROTECTORS IN PLACE. IVF INFUSING RAC PATNET, AM AND F/C CARE DONE BY HAND BUFFER. VISITING WITH FAMILY
--- NOTE | 2023-05-19 09:55 | NUR ---
PT IN ROOM, PT MEDICATED WITH OXYCODONE 15MG PO 10 PAIN
--- NOTE | 2023-05-19 10:10 | NUR ---
Chart faxed to [facility] at [facility] request.
--- NOTE | 2023-05-19 11:41 | NUR ---
PT SITTING UP IN EDGEOF BED. FAMILY HAD LEFT SOME TIME AGO. ALONE IN THE ROOM. INSTRUCTED THAT SHE NEEDED TO COME BACK TO BED, VERY ADAMANT, STRONG WILLED THAT SHE HAD TO STAY SITTING UP EDGE OF BED. TEACHING DONE FALL PRECAUTIONS. AFTER SEVERAL MINUTES, SHE FINALLY AGREED AND WAS ABLE TO PLACE SELF IN BED AND REPOSITION SELF. L STUMP DRESSING IN PLACE, CDI. ELEVATE WITH LEGS. IVF INFUSING. NO C/O PAIN. BED ALARM PLACED ON. CHARGE NURSE NOTIFIED OF PTS NEW MOOD CHANGE. WILL REORIENT WITH EVERY INTERACTION
--- NOTE | 2023-05-19 12:02 | NUR ---
ROUNDS. PT EXHIBITED STRONG ROSELIA RESOURCES; STRONG RELATIONAL RESOURCES; EXPRESSED CONFIDENCE IN FUTURE. PROVIDED SUPPORTIVE PRESENCE; LISTENED EMPATHETICALLY; PROVIDED PRAYER.
--- NOTE | 2023-05-19 12:18 | NUR ---
Review: 05/19/2023 [place] [facility] [place] meets inpatient status per review for the Guideline Knee: amputation above or below the knee. Pt meets guideline day 1 with a variance for guideline day 2.
--- NOTE | 2023-05-19 12:31 | NUR ---
Pt resting, eys closed, laying left side. L stump ekevated in pillows. IVF infusing, f/c patent
--- NOTE | 2023-05-19 13:30 | NUR ---
Spoke with Darnell. She cont. to want to dc to [place] when she has been cleared for dc. She denies other needs. She is aware her spouse requested I send her chart to [facility]. She cont. to want dc to [place]. I let her know she is the patient and I work for her.
--- NOTE | 2023-05-19 18:31 | NUR ---
AWAKE, TOOK ONLY BITES OF FOOD, CALMER, MORE RECEPTIVE TO INSTRUCTIONS. ON ROOM AIR, ivf INFUSING, F/C PATENT. L AKA STUMP COVERED WITH DRESSING, PT ABLE TO LIFT AND MOVE IT UP IN 180 DEGREES CLOSE TO CHEST. GRABBING IT OFTEN, UP IN PILLOWS WHICH PT HAS TAKEN OFF AND ON. r FOOT ADAN HOSE REMOVED, HEEL PROTECTOR IN PLACE. MOVES AND REPOSITIONS IN BED. WAFFLE MATTRESS IN PLACE. HAS BEEN MEDICATED TWICE WITH OXYCODONE WITH GOOD PAIN RELIEF.
--- NOTE | 2023-05-19 19:46 | NUR ---
REPORT RECEIVED FROM DAY SHIFT RN. PATIENT RESTING IN BED WITH EYES CLOSED. RESPIRATIONS EVEN AND UNLABORED. IV FLUID INFUSING PER ORDER. CALL LIGHT IN REACH.
--- NOTE | 2023-05-19 20:41 | NUR ---
PATIENT RESTING IN BED. VS AND I&Os OBTAINED AND RECORDED. GARCIA CATH CARE PROVIDED PER PROTOCOL. SCHEDULED AND PRN MEDCATION ADMINISTERED. ASSESSMENT COMPLETE. PATIENT REPORTS 10/10 LLE PAIN. PRN PAIN MEDCATION ADMINISTERED. PATIENT STUMP REPOSITIONED IN BED. LLE DRESSING C/D/I. PATIENT RIGHT LEG HAS TEDHOSE, HEEL PROTECTOR AND SCD IN PLACE. FRESH WATER AND SPRITE PROVIDED. IV FLUSHED AND WNL. BED ALARM ON FOR SAFETY. PATIENT REPORTS NO FURTHER NEEDS. CALL LIGHT IN REACH.
--- NOTE | 2023-05-19 23:07 | NUR ---
IV ABX INFUSING PER ORDER. PATIENT REPORTS NO CURRENT NEEDS. CALL LIGHT IN REACH.
--- NOTE | 2023-05-19 23:48 | NUR ---
PATIENT REPOSITIONED IN BED ON LEFT SIDE OF BODY. PILLOWS POSITIONED FOR COMFORT. TEDHOSE, HEEL PROTECTOR, AND SCD IN PLACE ON RIGHT FOOT. PATIENT REPORTS NO FURTHER NEEDS. CALL LIGHT IN REACH.
--- NOTE | 2023-05-20 | NUR ---
PATIENT REPORTS 10/10 LLE PAIN. PRN PAIN MEDICATION ADMINISTERED. NO FURTHER NEEDS. CALL LIGHT IN REACH.
--- NOTE | 2023-05-20 02:10 | NUR ---
PATIENT RESTING IN BED ON BACK WITH EYES CLOSED. RESPIRATIONS EVEN AND UNLABORED. CALL LIGHT IN REACH.
[2023-05-20 03:54] VITALS: BP 148/61
--- NOTE | 2023-05-20 04:00 | NUR ---
PATIENT ASSESSMENT COMPLETE. PATIENT REPORTS 11/08 LLE PAIN. PRN PAIN MEDICATION ADMINISTERED. LLE DRESSING C/D/I. VS AND I&Os OBTAINED AND RECORDED. FRESH WATER PROVIDED. PATIENT HAS NO FURTHER NEEDS. CALL LIGHT IN REACH. RLE TEDHOSE, HEEL PROTECTOR AND SCD IN PLACE.
[2023-05-20 05:40] LABS: BASOPHILS 0.8 % (0-2); EOSINOPHILS 2.8 % (0-6); HEMATOCRIT 24.2 % (35.0-50.0); HEMOGLOBIN 8.1 g/dL (12.0-18.0); LYMPHOCYTES 14.5 % (24-44); MCH 29.9 (27-36); MCHC 33.3 g/dl (30-36); MCV 89.9 fl (81-99); MONOCYTES 10.3 % (0-12); NEUTROPHILS 71.6 % (39-80); PLATELET COUNT 565 K/uL (140-440); RBC 2.69 M/ul (4.3-5.7); RDW 14.7 (10.5-15.0)
[2023-05-20 06:04] LABS: ALBUMIN 1.6 g/dL (3.4-5.0); ALBUMIN/GLOBULIN RATIO 0.36 (1.1-2.4); ANION GAP 14.4 (7-21); BILIRUBIN, TOTAL 0.4 ng/dL (0.2-1.0); CALCIUM 8.2 mg/dL (8.5-10.1); CREATININE, SERUM 0.8 mg/dL (0.55-1.02); POTASSIUM 4.4 mmol/L (3.5-5.1)
--- NOTE | 2023-05-20 06:35 | NUR ---
PATIENT BED WEIGHT OBTAINED AND RECORDED. PATIENT REPOSITIONED IN BED. IV ABX INFUSING PER ORDER. NO FURTHER NEEDS. CALL LIGHT IN REACH.
--- NOTE | 2023-05-20 07:45 | NUR ---
Pt up in bed, no c/o pain at thist mery, AM care done by WHEEL INSPECTOR. IVF infusing, f/c care completed, patent.
--- NOTE | 2023-05-20 08:19 | NUR ---
patient sitting up in bed after repositioning 2pa. am care completed and a shower cap provided. patient has no other requests at this time, call light within reach.
[2023-05-20 08:50] VITALS: BP 129/45
[2023-05-20 08:51] VITALS: BP 137/72
--- NOTE | 2023-05-20 08:56 | NUR ---
pt on room air, sitting up in bed, waffle mattress in place. IVF infusing RAC. c/o slight anxiety, medicated with Vitaril. LAC SPICA dressing inplace, elevated in pillows, good cms above dressing area. scds, koki oliver, heel protectors in R leg
--- NOTE | 2023-05-20 09:31 | NUR ---
NUTRITION FOLLOW-UP: PATIENT HAS BREAKFAST TRAY IN FRONT OF HER BUT IS NOT INTERESTED IN THE FOOD. IS DRINKING ENSURE PLUS HP CHOCOLATE. SHE PREFERS THE CHOCOLATE FLAVOR. DIETARY HAS BEEN SENDING ONE ON EVERY MEAL TRAY. PATIENT'S WEIGHT IS NOW 117 LB, DIFFERENT FROM ADMIT WEIGHT OF 174 LBS. NURSING STATES THE ADMIT WEIGHT COULD'VE BEEN A BED WEIGHT WITH HER EXTERNAL STABILIZER ON. SINCE THEN, PATIENT HAS HAD AN ABOVE KNEE AMPUTATION AND NO EXTERNAL STABILIZER AND HER WEIGHT IS NOW 117 LBS. SHE MAY HAVE LOST A FEW LBS SINCE BEING HERE FOR 15 DAYS DUE TO POOR APPETITE AND SEVERAL MISSED MEALS DUE TO BEING NPO FOR SURGERIES. TRIED TO OBTAIN FOOD PREFERENCES AGAIN TODAY, BUT PATIENT STATES "NOTHING SOUNDS GOOD. I FEEL NAUSEOUS." PART OF HER NOT EATING COULD BE RELATED TO DEMENTIA. CONTINUE REGULAR DIET AND CHOCOLATE ENSURES WITH MEALS. ENCOURAGE PATIENT TO EAT.
--- NOTE | 2023-05-20 11:35 | NUR ---
Spoke with Darnell. No needs.
--- NOTE | 2023-05-20 13:29 | NUR ---
pt awake, hob elevated, eating, no c/o pain. L AKA spica dressing in place
[2023-05-20 13:39] VITALS: BP 137/72
--- NOTE | 2023-05-20 13:55 | NUR ---
pT STARTED ON PO CLEOCIN. TOLERATED WELL, EATING
--- NOTE | 2023-05-20 14:09 | NUR ---
Called [facility] to confirm they received the order for pts wc I sent on the . Per [facility] they did. I asked if they plan on delivery for Tuesday as my hope is pt will be able to dc on Tuesday. She states, Yes.
--- NOTE | 2023-05-20 14:12 | NUR ---
Faxed updated notes to [facility] as he did not receive the notes I faxed last night. Let him know PT/OT have not worked with pt yet. I will fax notes later this afternoon.
--- NOTE | 2023-05-20 14:21 | NUR ---
medicated with Oxycodone 15 mf po 8 LAKA pain, and prior to working with PT. visiting with family
--- NOTE | 2023-05-20 14:40 | NUR ---
Received a text from [facility] at [facility]. They will accept this pt between 12-4 on Tuesday.
--- NOTE | 2023-05-20 15:48 | NUR ---
Texted Dr. Dunaway I will leave paperwork for him: SNF orders, 20 day recert, and [facility] order for her wc. All left at the dictation station.
--- NOTE | 2023-05-20 16:00 | NUR ---
Attempted to schedule the [facility] van for transport on Tuesday. They are closed due to the road conditions today. Will attempt to call Tuesday AM. Pt prefers wc van transport.
--- NOTE | 2023-05-20 16:01 | NUR ---
PT WORKED WITH PT/OT,FOR THE SECOND TIME THIS DAY. UP TO CHAIR AT THIS TIME, TOLERATING WELL
[2023-05-20 16:58] VITALS: BP 147/59
--- NOTE | 2023-05-20 17:13 | NUR ---
Pt currently awake, sitting up in bed, watching TV. no c/o pain, Has been medicated with Oxycodone 15mg po X1 per L AKA pain and prior to PT/OT therapy. effective. with Vistaril per anxiety X1 effective. On room air. f/c patent, no bm this shift, has been repositioned in bed. Spica dressing L AKA intact, repositioned as it gets too tight at waist area. tolerated well. R leg with koki melody, scds, heel protectors in place. IVF infusing w/o problems. Worked with PT, sat edge of bed, transfered to chair with FWW and 2 PA, with max assist of 3 person on return to bed. Tolerated well. Has had many visitors today. was irritable and argumentative with PT?OT but redirectable. uses call light,
--- NOTE | 2023-05-20 19:30 | NUR ---
REPORT RECEIVED FROM DAY SHIFT RN. PATIENT RESTING IN BED WITH EYES CLOSED. RESPIRATIONS EVEN AND UNLABORED. CALL LIGHT IN REACH.
[2023-05-20 20:28] VITALS: BP 137/52
--- NOTE | 2023-05-20 21:00 | NUR ---
PATIENT RESTING IN BED ON BACK. SCHEDULED AND PRN MEDICAITONS ADMINISTERED. VS AND I&Os OBTAINED AND RECORDED. PATIENT REPOSITIONED IN BED. FLOATED ON PILLOWS UNDER BILAT HIPS. ASSESSMENT COMPLETE. PATIENT REPORTS 7/10 PAIN IN LLE. PRN PAIN MEDICATION ADMINISTERED. LLE DRESSING C/D/I. GARCIA CATH CARE PROVIDED PER PROTOCOL. IV FLUSHED AND WNL. RIGHT LEG TEDHOSE, HEEL PROTECTOR, AND SCD IN PLACE. FRESH WATER PROVIDED. PATIENT REPORTS NO FURTHER NEEDS. CALL LIGHT IN REACH.
--- NOTE | 2023-05-20 21:55 | NUR ---
PATIENT RESTING IN BED ON BACK WITH EYES CLOSED. RESPIRATIONS EVEN AND UNLABORED. CALL LIGHT IN REACH.
--- NOTE | 2023-05-21 00:01 | NUR ---
PATIENT RESTING IN BED ON BACK WITH EYES CLOSED. FLOATED UNDER BILAT HIPS WITH PILLOWS. RESPIRATIONS EVEN AND UNLABORED. CALL LIGHT IN REACH.
--- NOTE | 2023-05-21 02:45 | NUR ---
PATIENT RESTING IN BED WITH EYES CLOSED. AWAKENS EASILY. PATIENT REPORTS 5/10 LLE PAIN. PRN PAIN MEDICATION ADMINISTERED, SEE MAR. ASSESSMENT COMPLETE. LLE DRESSING C/D/I. PATIENT REPORTS FEELING THE URGE TO URINATE. GARCIA CATH IN PLACE AND LOOKS WNL. THIS RN BLADDER SCANNED PATIENT. PATIENT HAS 2mL OF URINE IN BLADDER. PATIENT HAS NO FURTHER NEEDS. CALL LIGHT IN REACH. RLE HAS TEDHOSE. HEEL PROTECTOR, AND SCD IN PLACE.
--- NOTE | 2023-05-21 03:56 | NUR ---
PATIENT RESTING IN BED ON BACK WITH EYES CLOSED. PILLOWS UNDER BILAT HIPS. RESPIRATIONS EVEN AND UNLABORED. CALL LIGHT IN REACH.
[2023-05-21 05:07] VITALS: BP 152/62
--- NOTE | 2023-05-21 05:14 | NUR ---
PATIENT RESTING IN BED. VS AND I&Os OBTAINED AND RECORDED. PATIENT HAS NO FURTHER NEEDS. CALL LIGHT IN REACH.
--- NOTE | 2023-05-21 06:52 | NUR ---
NEW BAG IV FLUID INFUSING PER ORDER. NO FURTHER NEEDS. CALL LIGHT IN REACH.
--- NOTE | 2023-05-21 07:38 | NUR ---
VERBAL REPORT RECEIVED FROM AHMET STARKS. PT RESTS IN BED WITH EYES CLOSED, RESP EVEN AND UNLABORED.
--- NOTE | 2023-05-21 11:30 | NUR ---
FLUID REMOVED FROM GARCIA CATHETER BALLOON, CATHETER REMOVED, TIP INTACT. PT TOLERATED WELL. NOTED MEDIUM, FORMED, BROWN BM PASSED IN BREIF. KIKE CARE PROVIDED. NEW BREIF DONNED. NEW INCONTINENCE PAD AND DRAW SHEET APPLIED TO BED. PHYSICAL THERAPY INTO GET PT UP TO RECLINER. SPICA DRESSING APPLIED TO LEFT RESIDUAL LIMB, ADVISED BY , WHILE PT STOOD WITH FWW AND PHYSICAL THERAPIST. ABD PADS X3, CAST PADING, AND 6 INCH ELASTIC DRESSINGS X2 USED. PT TOLERATED WELL. PT TRANSFERRED TO RECLINER WITH PHYSICAL THERAPY. PUREWICK APPLIED TO KIKE AREA TO CATCH URINE. PT EDUCATION PROVIDED, PT VERBALIZES UNDERSTANDING.
--- NOTE | 2023-05-21 12:15 | NUR ---
IV FLUIDS D/C'D ORDERED. IV TO SL.
[2023-05-21 13:12] VITALS: BP 162/68
--- NOTE | 2023-05-21 13:35 | NUR ---
PT REPORTS SHE FEELS THE URGE TO VOID BUT DOESN'T KNOW IF SHE SHOULD TRY. REMINDED PT THAT SHE HAS AN EXTERNAL CATHETER IN PLACE, A PUREWICK, AND THAT SHE SHOULD TRY TO EMPTY HER BLADDER. PT UNABLE TO VOID. BLADDER SCAN PERFORMED, 359 MLS NOTED IN BLADDER. REPORTED TO QUANG FREY FOR DR. GRADY. QUANG FREY ADVISES TO CONTINUE TO ENCOUAGE PT TO VOID AND ONLY STRAIGHT CATH ONCE THE PT IS HAVING DISCOMFORT. PT INFORMED OF PLAN, VERBALIZES UNDERSTANDING.
--- NOTE | 2023-05-21 16:35 | NUR ---
PT UP TO BSC WITH 2 PERSON ASSIST AND FWW. PT PASSES EXTRA LARGE, FORMED, BROWN STOOL AND VOIDS 300 MLS OF URINE. PT REPORTS SHE FEELS RELEIF OF THE URGE TO VOID. PT BACK TO BED, CALL LIGHT IN REACH. PAIN MEDICATION RECEIVED FOR LLE PAIN, SEE EMAR. WEBBER IN PLACE.
[2023-05-21 19:04] VITALS: BP 123/48
--- NOTE | 2023-05-21 19:10 | NUR ---
REPORT RECIEVED FROM ARELIS LEO. pt RESTING IN THE BED. pt DENIES ANY PAIN AND NEEDS AT THIS TIME. CALL LIGHT WITHIN REACH.
[2023-05-21 20:12] VITALS: BP 149/70
--- NOTE | 2023-05-21 20:19 | NUR ---
VS AND I&O'S COLLECTED AND CHARTED-STABLE. FRESH ICE WATER PROVIDED. pt HAS PUREWICK IN PLACE, PATENT. NO ADDITIONAL NEEDS OR CONCERNS, CALL LIGHT IN REACH. PRIMARY RN HAKAN YEE.
--- NOTE | 2023-05-21 20:36 | NUR ---
ASSESSMENT AND VITAL SIGNS DONE. pt C/O 01/09 PAIN IN LLE. PRN PAIN MEDICATION ADMINISTERED, SEE JUN. LLE DRESSING CDI. SCHEDULED MEDICATION ADMINISTERED, SEE JUN. NEW PURE WICK PLACED. pt DENIES ANY OTHER NEEDS AT THIS TIME.
--- NOTE | 2023-05-21 23:30 | NUR ---
pt RESTING IN THE BED. pt DENIES ANY NEEDS AT THIS TIME. pt DENIES ANY PAIN AT THIS TIME. CALL LIGHT WITHIN REACH.
--- NOTE | 2023-05-22 02:13 | NUR ---
ASSESSMENT DONE. pt REPOSTIONED, HIPS FLOATED WITH PILLOWS. PURE WICK STILL IN PLACE. pt DENIES ANY PAIN AT THIS TIME. CALL LIGHT WITHIN REACH.
--- NOTE | 2023-05-22 04:14 | NUR ---
pt RESTING IN THE BED WITH EYES CLOSED. RR EVEN AND UNLABORED. NO S/SX OF OBVIOUS DISTRESS. CALL LIGHT WITHIN REACH.
[2023-05-22 05:42] VITALS: BP 116/46
--- NOTE | 2023-05-22 05:45 | NUR ---
VSS. NEW PURE WICK PLACED. pt DENIES PAIN AND HAS NO NEEDS AT THIS TIME. CALL LIGHT WITHIN REACH.
--- NOTE | 2023-05-22 07:46 | NUR ---
VERBAL REPORT RECEIVED FROM AHMET MCCLENDON. PT RESTS IN BED, AWAKE, CALL LIGHT IN REACH. NO REQUESTS AT THIS TIME.
[2023-05-22 09:23] VITALS: BP 148/56
--- NOTE | 2023-05-22 10:58 | NUR ---
PT UP TO RECLINER WITH PHYSICAL THERAPY.
--- NOTE | 2023-05-22 12:49 | NUR ---
PT REQUESTS TO VOID. PT ASSISTED TO BSC WITH ONE PERSON ASSIST AND PIVOT. PT PASSES LARGE FORMED, BROWN, STOOL AND VOIDS. URINE NOTED IN BREIF WELL. PUREWICK REMOVED. NEW BREIF DONNED. PT BACK TO RECLINER, TOLERATES ACTIVITIY WELL.
[2023-05-22 13:48] VITALS: BP 110/50
--- NOTE | 2023-05-22 16:25 | NUR ---
PT ASSISTED FROM RECLINER TO BSC VIA 1 PERSON ASSIST WITH FWW. PT VOIDS 100 MLS OF YELLOW URINE. PT ASSISTED TO BED. PT TOLERATES ACTIVITY WELL. FRESH ICE WATER AND LEMON-UMATILLA TRIBE SODA PROVIDED PER PT REQUEST. CALL LIGHT AND BELONGINGS IN REACH.
--- NOTE | 2023-05-22 16:47 | NUR ---
PT'S HAIR WASHED WITH RINSE FREE SHAMPOO AND CONDITIONER CAP.
[2023-05-22 17:16] VITALS: BP 133/56
--- NOTE | 2023-05-22 19:50 | NUR ---
REPORT RECEIVED FROM AHMET INFANTE. pt RESTING IN BED, TALKING ON PHONE. NO DISTRESS NOTED. CALL LIGHT IN REACH.
[2023-05-22 20:36] VITALS: BP 133/51
--- NOTE | 2023-05-22 20:56 | NUR ---
pt AWAKE RESTING IN BED. RATES PAIN 7-8/10 IN LLE. DRESSING CDI. PRN PAIN MEDICATION ADMINISTERED WITH ENSURE DRINK. pt DESCRIBES PAIN LIKE "BEING ON FIRE". ASSESSMENT COMPLETE. PUREWICK PLACED. INCONTINENT OF URINE, ATTENDS CHANGED. pt ASSISTED TO REPOSITION IN BED, 2RNS, pt ASSISTS. TWO RN SKIN ASSESSMENT WITH RN SHAYY, SKIN INTACT. CALL LIGHT IN REACH. BED ALARM ON FOR SAFETY AND IN LOW POSITION.
--- NOTE | 2023-05-23 00:15 | NUR ---
CHECKED ON pt. RESTING IN BED WITH EYES CLOSED. NO DISTRESS NOTED. BED ALARM ON, CALL LIGHT IN REACH.
--- NOTE | 2023-05-23 02:19 | NUR ---
pt RESTING IN BED WITH EYES CLOSED, HOB ELEVATED. BREATHING IS UNLABORED.
[2023-05-23 03:50] VITALS: BP 151/66
--- NOTE | 2023-05-23 04:05 | NUR ---
BED ALARM SOUNDING. pt REPOSITIONING IN BED. RATES PAIN 7/10 IN LLE WITH MOVEMENT "ITS OKAY IF I DON'T MOVE". pt DESCRIBES PAIN BURNING. PRN PAIN MEDICATION ADMINISTERED WITH ENSURE DRINK. REPOSITIONED IN BED. INCONTINENCE OF URINE AROUND PUREWICK, ATTENDS CHANGED, NEW PUREWICK IN PLACE. pt HAS CALL LIGHT AND PERSONAL SUPPLIES IN REACH.
--- NOTE | 2023-05-23 07:02 | NUR ---
CHECKED ON pt. RESTING WITH EYES CLOSED, IS IN HAND. BREATHING UNLABORED. NO DISTRESS NOTED.
--- NOTE | 2023-05-23 07:17 | NUR ---
PT RESTING IN BED. NO S/S DISTRESS NOTED.
--- NOTE | 2023-05-23 08:00 | NUR ---
Dr. Dunaway completed paperwork I left for him on . Orders, PASRR, face sheet, PT/OT notes, progress note faxed to [facility] at [facility]. I have not been able to contact the van at this time as their message states they are unavailable. Per [facility] at [facility], they would like Darnell there between noon and 4 pm.
--- NOTE | 2023-05-23 08:58 | NUR ---
DR VEGA IN TO SEE PT
--- NOTE | 2023-05-23 09:30 | NUR ---
I was able to schedule Darnell for transport per van at 2 pm today. Updated [facility] from [facility], Charge nurse, and Dr. Dunaway.
[2023-05-23 09:53] VITALS: BP 130/59
--- NOTE | 2023-05-23 11:45 | NUR ---
PT RESTING IN BED, NO COMPLAINTS AT THIS TIME. PT INFORMED OF DISCHARGE PLAN.
--- NOTE | 2023-05-23 11:58 | NUR ---
Completed IM letter with
--- NOTE | 2023-05-23 12:34 | NUR ---
PT SITTING UP IN BED EATING LUNCH.
[2023-05-23] MEDS ORDERED: OXYCODONE HCL5 MG PO (12:50)
[2023-05-23 12:52] VITALS: BP 130/59
--- NOTE | 2023-05-23 13:35 | PATH ---
[facility] [address], [place] [address] Signed SPECIMEN(S): A LEFT LEG SPECIMEN SOURCE: A. LEFT LEG CLINICAL HISTORY: Grade 3 left tiba/fibula open fracture FINAL PATHOLOGIC DIAGNOSIS: Leg, left, above-knee amputation: - Skin and soft tissue with ulceration and acute and chronic inflammation - Bone with mid tibial fracture as grossly described; negative for osteomyelitis - Surgical margins appear viable BRP MICROSCOPIC EXAMINATION: Histologic sections of all submitted blocks are examined by light microscopy. These findings, together with the gross examination, support the pathologic diagnosis. GROSS DESCRIPTION: The specimen, labeled and designated "Alma Delia Munoz " and designated on the requisition "left leg," is received in formalin and consists of left panos-iwo-oasu amputated leg that is 61.5 cm from [id number] margin and has a calf circumference of 33.6 cm. The 21.5 x 7.5 cm foot is present and displays five digits with yellow thickened nails. The skin is pale pink with a dusky red area of discoloration that is 34.5 x 33.6 cm. There is a dusky discoloration involves the upper leg, popliteal surface, anterior and posterior surfaces and is 0.2 cm from the closest skin and soft tissue resection margin. The closest margin is inked. Sectioning through the area of discoloration reveals extension into the underlying adipose tissue with a discoloration of the skeletal muscle. Bone involvement is not grossly identified. The leg displays a incision closed by black sutures that extends from the medial lower ankle up to the medial upper leg, across the popliteal surface and to the lateral knee measuring 54.6 cm in length. This incision is surrounded did by the previously described discoloration. The mid tibia displays a jagged and irregular fracture. The popliteal vessels PATIENT NAME: STACIE MUNOZ PATHOLOGY DATE OF : 47 REPORT #: [id number] PHYSICIAN: [facility] PATH[facility] PCP: KERMIT DERAS MD REPORT IS CONFIDENTIAL AND NOT TO BE RELEASED WITHOUT AUTHORIZATION [facility] [address], [place] [address] Signed display approximately 10% occlusion. The anterior tibial vessels display less than 10% occlusion. The posterior tibial vessels display less than 10% occlusion. The soft tissue surrounding the anterior tibial vessel is focally hemorrhagic and indurated. The surrounding skeletal muscle is dusky red and softened. The surgical resection margin is grossly viable. Patient Relations Representative sections are submitted in four cassettes. Cassette Summary: (A1) skin discoloration to resection margin (margin inked green), perpendicular, popliteal vessels (A2) area of skin discoloration to uninvolved skin, anterior tibial vessels (A3) area of skin discoloration surrounding incision, posterior tibial vessels (A4) bone at fracture site (Cassette placed into Decal Stat prior to processing.) (A5) bone marrow at resection margin FB (under the direct supervision of a pathologist) The Gross Description was prepared using a voice recognition system. The report was reviewed for accuracy; however, sound-alike word errors, addition and/or deletions may occur. If there is any question about this report, please contact Client Services. ADDITIONAL NOTES: Immunohistochemical and/or in situ hybridization studies if performed in this case included appropriate positive controls that reacted as expected. This test was developed and its performance characteristics determined by [facility]. It has not been cleared or approved by the U.S. Food and Drug Administration. The FDA has determined that such clearance or approval is not necessary. This test is used for clinical purposes. It should not be regarded as investigational or for research. [facility] is certified under the Clinical Laboratory Improvement Amendments of 1988 (CLIA) as qualified to perform high complexity clinical laboratory testing. PERFORMING LABORATORY: Technical component was performed by [facility], [address] [place] [id number] (CLIA# [id number]). Professional interpretation [facility], [address] [place], [place] [address] (CLIA# [id number]). PATIENT NAME: STACIE MUNOZ PATHOLOGY DATE OF : 47 REPORT #: [id number] PHYSICIAN: FIFI CARVALHO PCP: KERMIT DERAS MD REPORT IS CONFIDENTIAL AND NOT TO BE RELEASED WITHOUT AUTHORIZATION [facility] [address] [facility] [place] [address] Signed Diagnostician: Jay Coffman MD Pathologist Electronically Signed 05/23/2023 Copies: ~ PATIENT NAME: STACIE MUNOZ PATHOLOGY DATE OF : 47 REPORT #: [id number] PHYSICIAN: [facility] PATHOLOGY PCP: KERMIT DERAS MD REPORT IS CONFIDENTIAL AND NOT TO BE RELEASED WITHOUT AUTHORIZATION
--- NOTE | 2023-05-23 13:35 | NUR ---
IV DC'D, CATHETER INTACT AND DRSG APPLIED.
--- NOTE | 2023-05-23 13:46 | NUR ---
JORGE PROVIDED. TRUE WRIGHT DONNED. [facility] PROVIDED PANTS, DONNED WITH ASSIST. PT UP TO WHEELCHAIR WITH 1 PERSON ASSIST AND FWW WITH PIVOT ON RLE. PT TOLERATES ACTIVITY WELL.
--- NOTE | 2023-05-23 13:47 | NUR ---
PT SITTING UP IN WC WAITING FOR TRANSPORT. NO REQUESTS OR COMPLAINTS AT THIS TIME
[2023-05-23 13:48] VITALS: BP 126/76
--- NOTE | 2023-05-23 13:55 | NUR ---
pt dc'd to [facility], will call report.
--- NOTE | 2023-05-23 14:35 | NUR ---
report called to nurse at [facility].
== END 2023-05-23 13:53 | DRG 475 ==
LOC: ED 14:58 → CCU 16:50 → MS 16:50
PROVIDERS: Emergency Medicine; Family Medicine; Internal Medicine; ADMIT Specialist; ATTEND Specialist
PROC: 0QSH05Z Reposition Left Tibia with External Fixation Device, Open Approach (ICD-10-PCS; 2023-05-05)
PROC: 0QSK05Z Reposition Left Fibula with External Fixation Device, Open Approach (ICD-10-PCS; 2023-05-05 17:00)
PROC: 2W0 Placement, Anatomical Regions, Change (ICD-10-PCS; 2023-05-09)
PROC: 2W0 Placement, Anatomical Regions, Change (ICD-10-PCS; 2023-05-11)
PROC: 2W0 Placement, Anatomical Regions, Change (ICD-10-PCS; 2023-05-13)
PROC: 2W0 Placement, Anatomical Regions, Change (ICD-10-PCS; 2023-05-16)
PROC: 0Y6D0Z3 Detachment at Left Upper Leg, Low, Open Approach (ICD-10-PCS; principal; 2023-05-18 07:00)
DX: S82.222C Displaced transverse fracture of shaft of left tibia, initial encounter for open fracture type IIIA, IIIB, or IIIC (principal); I96 Gangrene, not elsewhere classified; S82.832C Other fracture of upper and lower end of left fibula, initial encounter for open fracture type IIIA, IIIB, or IIIC; I25.10 Atherosclerotic heart disease of native coronary artery without angina pectoris; I10 Essential (primary) hypertension; F03.90 Unspecified dementia, unspecified severity, without behavioral disturbance, psychotic disturbance, mood disturbance, and anxiety; I48.0 Paroxysmal atrial fibrillation; R74.01 Elevation of levels of liver transaminase levels; V49.88XA Car occupant (driver) (passenger) injured in other specified transport accidents, initial encounter; Z88.6 Allergy status to analgesic agent; Z88.8 Allergy status to other drugs, medicaments and biological substances
CPT/HCPCS: 00400; 01232; 01470; 36415; 64445; 64447; 71045; 72170; 73552; 73560; 73590; 76705; 76942; 80048; 80053; 80076; 82553; 84443; 85025; 85610; 86850; 86900; 86901; 88307; 88311; 93005; 93010; 96374; 96375; 97110; 97162; 97164; 97165; 97168; 97530; 97535; 99285-25; A9270; C1713; G0480; J0131; J0330; J0690; J0780; J1100; J1170; J1885; J2001; J2250; J2405; J2704; J2765; J3010; J3490; J7121; Q0177